=== PATIENT | female | born 1985 | race Caucasian/White ===

== ENCOUNTER 2016-06-25 08:23 | Inpatient (IN) | payer MEDICAID ==
[2016-06-25] MEDS ORDERED: Sodium Chloride 0.9% 1,000 ML IV ONE (08:25)
[2016-06-25] MEDS ORDERED: Albuterol-Ipratrop 3 mg / 0.5 (3 ml) UD INH STA ×2 (08:25)
[2016-06-25] MEDS ORDERED: Albuterol-Ipratrop 3 mg / 0.5 (3 ml) UD ONE (08:51)
--- NOTE | 2016-06-25 08:52 | C.PDOC ---
History Of Present Illness 30 y/o female, whose PMHx includes asthma, presents to the ED for complaints of shortness of breath. Patient is , 23 weeks . at bedside states that the patient had an asthma attack. EMS arrived on the scene where patient was reportedly found hypoxic. Intubation prepared, patient given Nebulizers, Solu-Medrol, Epinephrine, and Magnesium with improvement. Intubation no longer required due to clinical improvement. Patient admits to mild headache but denies any fever, chest pain, or other complaints. Time Seen by Provider: 06/25/16 08:23 Chief Complaint (Nursing): Respiratory Distress History Per: Patient, EMS, Family () History/Exam Limitations: no limitations Onset/Duration Of Symptoms: Hrs, Gradual, Persistent Current Symptoms Are (Timing): Still Present Current Respiratory Medications: See Home Med List Recent travel outside of the [place]: No Past Medical History Reviewed: Historical Data, Nursing Documentation, Vital Signs Vital Signs: Last Vital Signs Temp Pulse 107 H 06/25/16 12:23 Resp 19 06/25/16 12:23 BP 117/63 06/25/16 12:23 Pulse Ox 97 06/25/16 12:39 - Medical History PMH: Asthma Surgical History: - [facility] Procedures TETANUS TOXOID ADMINIST (12/24/14) Family History: States: Unknown Family Hx - Social History Hx Tobacco Use: Yes Hx Alcohol Use: No Hx Substance Use: No - Immunization History Hx Tetanus Toxoid Vaccination: No Hx Influenza Vaccination: No Hx Pneumococcal Vaccination: No Review Of Systems Except As Marked, All Systems Reviewed And Found Negative. Constitutional: Negative for: Fever Cardiovascular: Negative for: Chest Pain Respiratory: Positive for: Shortness of Breath Neurological: Positive for: Headache (mild) Physical Exam - Physical Exam Appears: Non-toxic, Other (in moderate respiratory distress) Skin: Warm, Dry, No Rash Head: Atraumatic, Normacephalic Eye(s): bilateral: Normal Inspection, PERRL, EOMI Neck: Normal ROM, Supple Chest: Symmetrical Cardiovascular: Rhythm Regular Respiratory: Wheezing (diffuse), Other (tachypnic; increased work of breathing; speaking in 5-7 word sentences) Gastrointestinal/Abdominal: Soft, No Tenderness, No Guarding, No Rebound, Other (gravid) Back: Normal Inspection, No CVA Tenderness Extremity: Normal ROM, No Swelling Neurological/Psych: Oriented x3, Normal Speech, Normal Cognition ED Course And Treatment - Laboratory Results Result Diagrams: 06/25/16 08:43 06/25/16 08:43 O2 Sat by Pulse Oximetry: 97 (ra) Pulse Ox Interpretation: Normal Critical Care Time - Critical Care Note Total Time (in mins): 45 Documented critical care: time excludes all time spent performing seperately billable procedures. Medical Decision Making Medical Decision Making: Recommended that patient receive Chest X-Ray. Patient and decline. 1017: case discussed with dr fairbanks, pts obgyn. will eval. ob us ordered. case discussed with dr casarez, pending icu eval. dr tobias accepts. 1230: pt tolerating high flow. status improving. not icu canddiate. dr tobias accepts Disposition - Disposition Disposition: HOSPITALIZED Disposition Time: 12:38 Condition: FAIR - Clinical Impression Clinical Impression: Asthma with status asthmaticus - Scribe Statement The provider has reviewed the documentation as recorded by the Scribe (Zenaida Walton) Provider Attestation: All medical record entries made by the Scribe were at my direction and personally dictated by me. I have reviewed the chart and agree that the record accurately reflects my personal performance of the history, physical exam, medical decision making, and the department course for this patient. I have also personally directed, reviewed, and agree with the discharge instructions and disposition. Decision To Admit - Pt Status Changed To: Hospital Disposition Of: Inpatient - Admit Certification Admit to Inpatient:: After my assessment, the patient will require hospitalization for at least two midnights. This is because of the severity of symptoms shown, intensity of services needed, and/or the medical risk in this patient being treated as an outpatient. - InPatient: Physician Admission Certification: I certify that this patient requires 2 or more midnights of care for the following reason:: status asthmaticus. - . Bed Request Type: Telemetry Admitting Physician: Marcelo Jalloh Patient Diagnosis: Asthma with status asthmaticus
[2016-06-25 08:55] LABS: BASO % 0.2 % (0.0-2.0); EOS # 0.5 K/uL (0.0-0.7); EOS % 3.8 % (0.0-4.0); HEMATOCRIT 35.9 % (34.0-47.0); LYMPH # 4.7 K/uL (1.0-4.3); LYMPH % 36.4 % (20.0-40.0); MEAN CORPUSCULAR HEMOGLOBIN 31.7 pg (27.0-31.0); MEAN CORPUSCULAR HGB CONC 33.4 g/dL (33.0-37.0); MEAN PLATELET VOLUME 8.6 fL (7.2-11.7); MONO # 0.7 K/uL (0.0-0.8); MONO % 5.4 % (0.0-10.0); RED CELL DISTRIBUTION WIDTH 13.2 % (11.5-14.5)
[2016-06-25 09:04] LABS: CHLORIDE 102 mmol/L (98-107); SODIUM 135 mmol/L (132-148)
[2016-06-25 09:06] LABS: GFR AFRICAN-AMERICAN > 60
[2016-06-25 09:06] LABS: ABG ALLEN TEST PO; DRAW SITE RRA
[2016-06-25 09:07] LABS: ALB/GLOB RATIO 1.1 (1.0-2.1); ALKALINE PHOSPHATASE 50 U/L (38-126); ALT/SGPT 20 U/L (9-52); AST/SGOT 31 U/L (14-36); BILIRUBIN,TOTAL 0.2 mg/dL (0.2-1.3); BLOOD UREA NITROGEN 10 mg/dL (7-17); CALCIUM 8.1 mg/dl (8.6-10.4); CARBON DIOXIDE 20 mmol/L (22-30); GLUCOSE,RANDOM 177 mg/dL (65-105); TOTAL PROTEIN 6.7 g/dL (6.3-8.3)
[2016-06-25] MEDS ORDERED: Potassium Chloride 20 mEq ER Tab PO STA (09:08)
[2016-06-25] MEDS ORDERED: Potassium Chloride 20 mEq ER Tab PO ONE (09:14)
--- NOTE | 2016-06-25 11:27 | US ---
Indication: , well-being Comparison: 1st trimester ultrasound performed 03/07/16 Technique: Real-time ultrasound was performed through the pelvis. Findings: There is a single living fetus in variable presentation. Anterior placenta. The placenta is not previa. The ovaries are not well visualized. There are no adnexal masses or cysts evident. Cervix length measures approximately 4.4 cm. Measurements and calculations: Fetus has a composite sonographic age of 23 weeks 4 days. This calculation is based on the biparietal diameter, head circumference, abdominal circumference, and femur length. Estimated heart rate 137.2 beats per min. Estimated weight 589.9 g +/-88.5 g Impression: Single living fetus with a composite sonographic age of 23 weeks 4 days. Estimated heart rate 137.2 beats per min. Please note that this study was performed for the emergent evaluation of well-being, and the whole anatomic survey of the fetus was not performed. This should be performed on an outpatient elective basis as clinically warranted.
[2016-06-25 11:31] LABS: RBC URINE 1 /hpf (0-3); URINE BILIRUBIN NEGATIVE (NEGATIVE); URINE BLOOD 2+ (NEGATIVE); URINE COLOR Straw (YELLOW); URINE GLUCOSE (UA) 1+ mg/dL (Normal); URINE KETONE NEGATIVE (NEGATIVE); URINE LEUKOCYTE ESTERASE NEG Leu/uL (Negative); URINE PROTEIN NEGATIVE (NEGATIVE); URINE UROBILINOGEN NORMAL mg/dL (0.2-1.0); WBC URINE 1 /hpf (0-5)
[2016-06-25] MEDS ORDERED: Potassium Chloride 20 mEq 100 ML IVPB ONE ×2 (11:35→11:40)
--- NOTE | 2016-06-25 13:39 | CP.PCM.HP ---
History of Present Illness - History of Present Illness History of Present Illness: CC - "Asthma" HPI - Patient is a 30 y/o F at 23 weeks with PMHx of asthma and preeclampsia, presenting with SOB for 6 hours. Patient states she was getting ready for work at 7AM and experienced SOB when she bent down to tie her shoes. Patient states this usually happens when she bends over and places pressure on abdomen, but is usually relieved when she sits back up. Patient states she "couldn't breathe," with no relief of symptoms after using her ventolin pump and nebulizer. Patient states her took her outside, but she lost consciousness after noticing that her lips turned blue. Patient reports associated symptoms of dizziness (denies room spinning), headache, and non-productive cough which all began around the same time as SOB. Patient also reports mid-sternal chest pain, non-radiating "pressure", which relieved en route to hospital. She was given nebulizers, solu-medrol, epi, and magnesium by EMS and reported improvement in symptoms. Patient denies spotting or bleeding; denies fever, chills, N/V. No history of blood clots, no recent travel or long cars ride. No new food this AM. PMHx - Asthma since 9 (never been intubated; denies any triggers); preeclampsia (both pregnancies) [employer] [place] Hx- 2 miscarriages and 1 , 2 living (1 10 years old and 1 5 year old) Surg - C section x 2 (2010, 2005) D/C 2008, Removal of ovarian cyst and tumor ( 17 years ago) Meds - Ventolin pump (up to 4 times daily) , Nebulizer once at night Allergies - Kiwi, fruit and seasonal allergies Fam Hx - brother Asthma, older son has asthma - no cancer, [place], stroke Social - smokes when not preg 6 cigs a day for 15 days, denies alcohol while preg but socially when not, denies drug use; lives with and kids; works as [employer] PMD - Dr. Elijah Herrmann - does not follow up often OB - Dr. Earnest Lee - was seen in the office yesterday Present on Admission - Present on Admission Any Indicators Present on Admission: No Review of Systems - Constitutional Constitutional: Fatigue, Headache. absent: Chills, Fever, Night Sweats, Weakness - EENT Eyes: absent: Blurred Vision, Change in Vision - Cardiovascular Cardiovascular: Chest Pain, Chest Pain at Rest. absent: Dyspnea on Exertion, Edema, Orthopnea, Palpitations, Pedal Edema Additional comments: chest pain resolved in ED - Respiratory Respiratory: Cough, Dyspnea. absent: Hemoptysis, Dyspnea on Exertion, Pain on Inspiration - Gastrointestinal Gastrointestinal: absent: Abdominal Pain, Diarrhea, Nausea, Vomiting - Genitourinary Genitourinary: absent: Dysuria, Hematuria, Urinary Incontinence, Urinary Frequency, Urinary Urgency - Reproductive: Female Reproductive:Female: absent: Abnormal Vaginal Bleeding, Pelvic Pain Additional comments: 23 weeks ; - Menstruation Menstruation: absent: Abnormal Vaginal Bleeding - Musculoskeletal Musculoskeletal: Back Pain. absent: Muscle Weakness, Numbness, Tingling - Neurological Neurological: Dizziness, Headaches. absent: Confusion, Numbness, Tingling - Endocrine Endocrine: Fatigue Past Patient History - Infectious Disease Hx of Infectious Diseases: None - Past Social History Smoking Status: Former Smoker - PULMONARY Hx Asthma: Yes - PSYCHIATRIC Hx Substance Use: No - SURGICAL HISTORY Hx Section: Yes Other/Comment: "2 c section, 1 D&C, 1 , 1 cysct and 2 tumors removal in ovaries" - ANESTHESIA Hx Anesthesia: Yes Hx Anesthesia Reactions: No Hx Malignant Hyperthermia: No Meds Allergies/Adverse Reactions: Allergies Allergy/AdvReac Type Severity Reaction Status Date / Time No Known Allergies Allergy Verified 06/25/16 08:36 Physical Exam - Constitutional Appears: Non-toxic, In Acute Distress - Head Exam Head Exam: ATRAUMATIC, NORMAL INSPECTION, NORMOCEPHALIC - Eye Exam Eye Exam: EOMI, PERRL Pupil Exam: NORMAL ACCOMODATION - ENT Exam ENT Exam: Mucous Membranes Moist - Neck Exam Neck exam: Positive for: Normal Inspection - Respiratory Exam Respiratory Exam: Wheezes, Respiratory Distress. absent: Accessory Muscle Use, Chest Wall Tenderness, NORMAL BREATHING PATTERN - Cardiovascular Exam Cardiovascular Exam: Tachycardia, REGULAR RHYTHM, +S1, +S2. absent: Diastolic murmur, Systolic Murmur - GI/Abdominal Exam GI & Abdominal Exam: Distended, Normal Bowel Sounds, Soft. absent: Firm, Guarding, Tenderness Additional comments: distended appropriate - is + movements - Extremities Exam Extremities exam: Positive for: normal inspection. Negative for: calf tenderness, pedal edema - Back Exam Back exam: absent: CVA tenderness (L), CVA tenderness (R), NORMAL INSPECTION, paraspinal tenderness - Neurological Exam Neurological exam: Alert, CN II-XII Intact, Oriented x3, Reflexes Normal - Psychiatric Exam Psychiatric exam: Normal Affect, Normal Mood - Skin Skin Exam: Dry, Intact, Normal Color, Warm Results - Vital Signs Recent Vital Signs: Last Vital Signs Temp Pulse 107 H 06/25/16 12:23 Resp 19 06/25/16 12:23 BP 117/63 06/25/16 12:23 Pulse Ox 97 06/25/16 12:39 - Labs Result Diagrams: 06/25/16 08:43 06/25/16 08:43 Assessment & Plan - Assessment and Plan (Free Text) Assessment: Asthma Exacerbation Patient saturating high 90s on NC, RR in low 20s, +Wheezing Tachycardic (120s) - will monitor Albuterol INH RQ4 [facility] Pulmicort 0.25 INH Q12 [facility] High flow O2 via NC ABG - normal lactate, not retaining C02, ph wnl Monitor vitals Q2 Admit to telemetry Will discuss with her OB, Dr Lee, about Steroid use in - called placed, waiting to hear back Chest X ray - patient refusing until she discusses with OB Venous dopplers LE b/l to rule out DVT Troponin negative, will check one more with EKG f/u UDS UA wnl f/u am labs U/S done in ED 23 week 4 days heart rat 137.2 OBGYN consulted, help appreciated, Dr. Lee - appreciate recs Saw him in office yesterday Hyperglycemia Blood sugar 177 Monitor with accuchecks Consistent Carb diet Prophylaxis GI - not indicated DVT - SCDS - will obtain dopplers first Consistent Carb diet
[2016-06-25 16:45] VITALS: RESP 20
[2016-06-25] MEDS: Albuterol 0.083% Inhal Sol (2.5 mg/3 mL) UD INH SCH ×3 (17:16→23:40)
[2016-06-25] MEDS: Budesonide 0.25 mg/2 ml Inhal Susp UD INH SCH ×2 (17:16→19:41)
[2016-06-26] MEDS: Albuterol 0.083% Inhal Sol (2.5 mg/3 mL) UD INH SCH ×4 (03:09→16:15)
[2016-06-26 06:11] LABS: BASO % 0.1 % (0.0-2.0); HEMATOCRIT 33.5 % (34.0-47.0); LYMPH # 1.1 K/uL (1.0-4.3); LYMPH % 4.9 % (20.0-40.0); MEAN CORPUSCULAR HEMOGLOBIN 31.3 pg (27.0-31.0); MEAN CORPUSCULAR HGB CONC 32.9 g/dL (33.0-37.0); MEAN PLATELET VOLUME 8.8 fL (7.2-11.7); MONO # 0.7 K/uL (0.0-0.8); MONO % 2.9 % (0.0-10.0); PLATELET COUNT 216 K/uL (130-400); RED CELL DISTRIBUTION WIDTH 13.2 % (11.5-14.5); WHITE BLOOD COUNT 23.3 K/uL (4.8-10.8)
[2016-06-26 06:28] LABS: CHLORIDE 105 mmol/L (98-107); POTASSIUM 4.2 mmol/L (3.6-5.2); SODIUM 134 mmol/L (132-148)
[2016-06-26 06:30] LABS: BILIRUBIN,TOTAL 0.5 mg/dL (0.2-1.3); GFR AFRICAN-AMERICAN > 60
[2016-06-26 06:31] LABS: ALB/GLOB RATIO 1.1 (1.0-2.1); ALKALINE PHOSPHATASE 57 U/L (38-126); ALT/SGPT 23 U/L (9-52); AST/SGOT 32 U/L (14-36); BLOOD UREA NITROGEN 8 mg/dL (7-17); CARBON DIOXIDE 19 mmol/L (22-30); GLUCOSE,RANDOM 122 mg/dL (65-105); PHOSPHOROUS 3.3 mg/dL (2.5-4.5); TOTAL PROTEIN 6.1 g/dL (6.3-8.3)
[2016-06-26 06:32] LABS: CALCIUM 8.4 mg/dl (8.6-10.4); MAGNESIUM 1.6 mg/dL (1.6-2.3)
[2016-06-26] MEDS: Budesonide 0.25 mg/2 ml Inhal Susp UD INH SCH (07:45)
--- NOTE | 2016-06-26 08:31 | VASCLAB ---
PROCEDURE: Lower Extremity Venous Duplex Exam. HISTORY: Leg pain, rule out dvt PRIORS: None. TECHNIQUE: Bilateral common femoral, femoral, popliteal and posterior tibial, peroneal and great saphenous veins were evaluated. Flow was assessed with color Doppler, compressibility, assessment of phasic flow and augmentation response. Report prepared by David Blake, AARON, RVT FINDINGS: RIGHT: 1. Common Femoral Vein: 1.1. Compressibility - Fully compressible: Thrombus - None : Flow - Phasic: Augmentation -Normal: Reflux - None. 2. Femoral Vein: 2.1. Compressibility - Fully compressible: Thrombus - None : Flow - Phasic: Augmentation -Normal: Reflux - None. 3. Popliteal Vein: 3.1. Compressibility - Fully compressible: Thrombus - None : Flow - Phasic: Augmentation -Normal: Reflux - None. 4. Posterior Tibial Vein: 4.1. Compressibility - Fully compressible: Thrombus - None: Flow - Phasic: Augmentation -Normal: Reflux - None. 5. Peroneal Vein: 5.1. Compressibility - Fully compressible: Thrombus - None: Flow - Phasic: Augmentation -Normal: Reflux - None. 6. Great Saphenous Vein: 6.1. Compressibility - Fully compressible: Thrombus - None: Flow - Phasic: Augmentation - Normal: Reflux - None. LEFT: 1. Common Femoral Vein: 1.1. Compressibility - Fully compressible: Thrombus - None: Flow - Phasic: Augmentation -Normal: Reflux - None. 2. Femoral Vein: 2.1. Compressibility - Fully compressible: Thrombus - None: Flow - Phasic: Augmentation -Normal: Reflux - None. 3. Popliteal Vein: 3.1. Compressibility - Fully compressible: Thrombus - None : Flow - Phasic: Augmentation -Normal: Reflux - None. 4. Posterior Tibial Vein: 4.1. Compressibility - Fully compressible: Thrombus - None: Flow - Phasic: Augmentation -Normal: Reflux - None. 5. Peroneal Vein: 5.1. Compressibility - Fully compressible: Thrombus - None: Flow - Phasic: Augmentation -Normal: Reflux - None. 6. Great Saphenous Vein: 6.1. Compressibility - Fully compressible: Thrombus - None: Flow - Phasic: Augmentation - Normal: Reflux - None. OTHER FINDINGS: Right: None significant. Left: None significant. IMPRESSION: Right: No evidence of deep or superficial vein thrombosis of the right lower extremity. Normal valve function noted of the right side. Left: No evidence of deep or superficial vein thrombosis of the left lower extremity. Normal valve function noted of the left side.
[2016-06-26 08:41] LABS: LARGE PLATELETS PRESENT; NEUTROPHIL 90 % (50-75); TOTAL CELLS COUNTED 100
--- NOTE | 2016-06-26 10:43 | CP.PCM.CON ---
History of Present Illness - History of Present Illness History of Present Illness: 30 year old P3 at 24 weeks Gestation admitted with Status Asthmaticus. Review of Systems - Respiratory Respiratory: As Per HPI - Reproductive: Female Reproductive:Female: As Per HPI Past Patient History - Infectious Disease Hx of Infectious Diseases: None - Past Medical History & Family History Past Medical History?: Yes - Past Social History Smoking Status: Never Smoked - PULMONARY Hx Asthma: Yes - MUSCULOSKELETAL/RHEUMATOLOGICAL Hx Falls: No - PSYCHIATRIC Hx Psychophysiologic Disorder: No Hx Substance Use: No - SURGICAL HISTORY Hx Surgeries: Yes Hx Section: Yes Other/Comment: "2 c section, 1 D&C, 1 , 1 cysct and 2 tumors removal in ovaries" - ANESTHESIA Hx Anesthesia: Yes Hx Anesthesia Reactions: No Hx Malignant Hyperthermia: No Has any member of the family had a problem w/ anesthesia?: No Meds Allergies/Adverse Reactions: Allergies Allergy/AdvReac Type Severity Reaction Status Date / Time No Known Allergies Allergy Verified 06/25/16 08:36 - Medications Medications: Current Medications Acetaminophen (Tylenol 325mg Tab) 650 mg PO Q6 PRN PRN Reason: Pain, moderate (4-7) Last Admin: 06/25/16 19:09 Dose: 650 mg Albuterol Sulfate (Albuterol 0.083% Inhal Patsy (2.5 Mg/3 Ml) Ud) 2.5 mg INH Q4 [facility] Last Admin: 06/26/16 07:45 Dose: 2.5 mg Budesonide (Pulmicort Respules) 0.25 mg INH RQ12 [facility] Last Admin: 06/26/16 07:45 Dose: 0.25 mg Prednisone (Prednisone Tab) 40 mg PO DAILY [facility] Physical Exam - Constitutional Appears: Well - Respiratory Exam Respiratory Exam: Wheezes, NORMAL BREATHING PATTERN Results - Vital Signs Recent Vital Signs: Last Vital Signs Temp 98.4 F 06/26/16 07:00 Pulse 98 H 06/26/16 07:35 Resp 20 06/26/16 07:00 BP 114/67 06/26/16 07:00 Pulse Ox 97 06/26/16 07:00 - Labs Result Diagrams: 06/26/16 06:02 06/26/16 06:02 Labs: Laboratory Results - last 24 hr 06/25/16 06/25/16 06/26/16 19:33 22:22 06:02 WBC 23.3 H D RBC 3.53 L Hgb 11.0 Hct 33.5 L MCV 95.0 MCH 31.3 H MCHC 32.9 L RDW 13.2 Plt Count 216 MPV 8.8 Neut % (Auto) 92.1 H Lymph % (Auto) 4.9 L Rhea % (Auto) 2.9 Eos % (Auto) 0.0 Baso % (Auto) 0.1 Neut # 21.5 H Lymph # 1.1 Rhea # 0.7 Eos # 0.0 Baso # 0.0 Neutrophils % (Manual) 90 H Band Neutrophils % 2 Lymphocytes % (Manual) 5 L Monocytes % (Manual) 3 Platelet Estimate Normal Large Platelets Present RBC Morphology Normal Sodium 134 Potassium 4.2 Chloride 105 Carbon Dioxide 19 L Anion Gap 14 BUN 8 Creatinine 0.4 L Est GFR ( Amer) > 60 Est GFR (Non-Af Amer) > 60 Random Glucose 122 H Calcium 8.4 L Phosphorus 3.3 Magnesium 1.6 Total Bilirubin 0.5 AST 32 ALT 23 Alkaline Phosphatase 57 Troponin I < 0.0120 Total Protein 6.1 L Albumin 3.2 L Globulin 2.9 Albumin/Globulin Ratio 1.1 Urine Opiates Screen Negative Urine Methadone Screen Negative Ur Barbiturates Screen Negative Ur Phencyclidine Scrn Negative Ur Amphetamines Screen Negative U Benzodiazepines Scrn Negative U Oth Cocaine Metabols Negative U Cannabinoids Screen Negative - Impressions Impression: 24 week Gestation with Asthma. Leukocytosis from steroids. Assessment & Plan - Assessment and Plan (Free Text) Assessment: 24 weeks G[place] with Asthma Exacerbation. Plan: Management per Medical team. - Date & Time Date: 06/26/16 Time: 10:47
--- NOTE | 2016-06-26 13:13 | RAD ---
PROCEDURE: CHEST RADIOGRAPH, 1 VIEW HISTORY: SOB COMPARISON: 03/03/2013 FINDINGS: LUNGS: Nodular opacity in the medial right lower lung. PLEURA: No pneumothorax or pleural fluid seen. CARDIOVASCULAR: Normal. OSSEOUS STRUCTURES: No significant abnormalities. VISUALIZED UPPER ABDOMEN: Normal. OTHER FINDINGS: None. IMPRESSION: Nodular opacity in the medial right lower lung. This could be an infectious focus. PA lateral chest radiograph recommended.
--- NOTE | 2016-06-26 15:53 | CP.PCM.PN ---
<PratikLisa - Last Filed: 06/26/16 16:01> Subjective - Date & Time of Evaluation Date of Evaluation: 06/26/16 Time of Evaluation: 07:40 - Subjective Subjective: PGY1 note for Dr. Jalloh: Patient seen and examined at bedside. She states she is still slighly short of breath. She said that she was short of breath while geting up and walking to the bathrooom. Patient denied all other complaints such as headache, visual changes, weakness/numbness, fever/chills, SOB, chest pain, palpitation, abd pain , N/V, constipation, diarrhea, edema, urinary complaints. She is tolerating her diet and feels the baby moving. Objective - Vital Signs/Intake and Output Vital Signs (last 24 hours): Temp Pulse Resp BP Pulse Ox 98.2 F 79 20 112/63 98 06/26/16 11:00 06/26/16 11:00 06/26/16 11:00 06/26/16 11:00 06/26/16 11:00 - Medications Medications: Current Medications Acetaminophen (Tylenol 325mg Tab) 650 mg PO Q6 PRN PRN Reason: Pain, moderate (4-7) Last Admin: 06/25/16 19:09 Dose: 650 mg Albuterol Sulfate (Albuterol 0.083% Inhal Patsy (2.5 Mg/3 Ml) Ud) 2.5 mg INH Q4 [facility] Last Admin: 06/26/16 11:35 Dose: 2.5 mg Budesonide (Pulmicort Respules) 0.25 mg INH RQ12 [facility] Last Admin: 06/26/16 07:45 Dose: 0.25 mg Prednisone (Prednisone Tab) 40 mg PO Q24H [facility] Last Admin: 06/26/16 11:22 Dose: 40 mg - Labs Labs: 06/26/16 06:02 06/26/16 06:02 PT 10.7 SECONDS (9.7-12.2) 06/25/16 08:43 INR 1.0 06/25/16 08:43 APTT 24 SECONDS (21-34) 06/25/16 08:43 - Constitutional Appears: Non-toxic, No Acute Distress - Head Exam Head Exam: ATRAUMATIC, NORMAL INSPECTION - Eye Exam Eye Exam: EOMI Pupil Exam: NORMAL ACCOMODATION - Respiratory Exam Respiratory Exam: Decreased Breath Sounds, NORMAL BREATHING PATTERN. absent: Accessory Muscle Use, Wheezes, Respiratory Distress - Cardiovascular Exam Cardiovascular Exam: REGULAR RHYTHM, +S1, +S2 - GI/Abdominal Exam GI & Abdominal Exam: Distended, Soft. absent: Firm, Guarding, Tenderness, Normal Bowel Sounds Additional comments: - Extremities Exam Extremities Exam: Full ROM, Normal Inspection, Pedal Edema. absent: Calf Tenderness - Back Exam Back Exam: NORMAL INSPECTION. absent: CVA tenderness (L), CVA tenderness (R), paraspinal tenderness - Neurological Exam Neurological Exam: Alert, Awake, CN II-XII Intact, Oriented x3 Neuro motor strength exam: Left Upper Extremity: 5, Right Upper Extremity: 5, Left Lower Extremity: 5, Right Lower Extremity: 5 - Psychiatric Exam Psychiatric exam: Normal Affect, Normal Mood - Skin Skin Exam: Dry, Intact, Normal Color, Warm Assessment and Plan - Assessment and Plan (Free Text) Assessment: Asthma Exacerbation Wheezing improved but pt still complains of SOB Chest X ray - nodular opacity in the medial right lower Will consult pulm for possible pneumonia Tachycardia improving Albuterol INH RQ4 [facility] Pulmicort 0.25 INH Q12 [facility] NC 2 L prn ABG - normal lactate, not retaining C02, ph wnl Monitor vitals Q2 Admit to telemetry Will discuss with her OB, Dr Lee Venous dopplers LE b/l - negative Troponin negative x 2 UDS negative UA wnl f/u am labs U/S done in ED 23 week 4 days heart rat 137.2 OBGYN consulted, help appreciated, Dr. Lee - appreciate recs Saw him in office yesterday Hyperglycemia Blood sugar 177 on admission, 122 today Monitor with accuchecks Consistent Carb diet Prophylaxis GI - not indicated DVT - SCDS Consistent Carb diet <Marcelo Jalloh - Last Filed: 06/27/16 10:21> Objective - Vital Signs/Intake and Output Vital Signs (last 24 hours): Temp Pulse Resp BP Pulse Ox 97.9 F 79 20 92/60 L 96 06/27/16 07:57 06/27/16 07:57 06/27/16 07:57 06/27/16 07:57 06/27/16 07:57 - Medications Medications: Current Medications Acetaminophen (Tylenol 325mg Tab) 650 mg PO Q6 PRN PRN Reason: Pain, moderate (4-7) Last Admin: 06/25/16 19:09 Dose: 650 mg Albuterol Sulfate (Albuterol 0.083% Inhal Patsy (2.5 Mg/3 Ml) Ud) 2.5 mg INH Q4 [facility] Last Admin: 06/27/16 07:10 Dose: 2.5 mg Budesonide (Pulmicort Respules) 0.25 mg INH RQ12 [facility] Last Admin: 06/27/16 07:10 Dose: 0.25 mg Magnesium Sulfate/Dextrose (Magnesium Sulfate 1 Gm/100 Ml D5w) 100 mls @ 100 mls/hr IVPB ONCE ONE Stop: 06/27/16 10:45 Prednisone (Prednisone Tab) 40 mg PO Q24H [facility] Last Admin: 06/26/16 11:22 Dose: 40 mg - Labs Labs: 06/27/16 05:45 06/27/16 05:45 PT 10.7 SECONDS (9.7-12.2) 06/25/16 08:43 INR 1.0 06/25/16 08:43 APTT 24 SECONDS (21-34) 06/25/16 08:43 Attending/Attestation - Attestation I have personally seen and examined this patient.: Yes I have fully participated in the care of the patient.: Yes I have reviewed all pertinent clinical information, including history, physical exam and plan: Yes Notes (Text): Patient with asthma since childhood, now at 16 weeks, presented with severe shortness of breath, admitted for asthma exacerbation; Breathing reportedly improved but still short of breath on minimal exertion; lungs clear and no wheezing on exam, good air movement; venous LE duplex negative; Patient finally agreed to CXR, clear except for noted nodular opacity in RML; will get pulm consult; OB consult appreciated, recommending medical management; -continue PO prednisone (decreased to 40 mg daily from bid) -continue budesonide bid
[2016-06-27] MEDS: Albuterol 0.083% Inhal Sol (2.5 mg/3 mL) UD INH SCH ×6 (01:00→19:25)
[2016-06-27 06:35] LABS: BASO % 0.1 % (0.0-2.0); EOS # 0.1 K/uL (0.0-0.7); EOS % 0.3 % (0.0-4.0); HEMATOCRIT 33.1 % (34.0-47.0); LYMPH # 2.9 K/uL (1.0-4.3); LYMPH % 19.6 % (20.0-40.0); MEAN CELL VOLUME 95.5 fL (81.0-99.0); MEAN CORPUSCULAR HEMOGLOBIN 31.5 pg (27.0-31.0); MEAN PLATELET VOLUME 8.9 fL (7.2-11.7); MONO # 0.8 K/uL (0.0-0.8); MONO % 5.3 % (0.0-10.0); RED CELL DISTRIBUTION WIDTH 13.2 % (11.5-14.5)
[2016-06-27 06:43] LABS: CHLORIDE 108 mmol/L (98-107)
[2016-06-27 06:44] LABS: POTASSIUM 3.8 mmol/L (3.6-5.2); SODIUM 137 mmol/L (132-148)
[2016-06-27 06:46] LABS: ALB/GLOB RATIO 0.9 (1.0-2.1); AST/SGOT 24 U/L (14-36); BILIRUBIN,TOTAL 0.2 mg/dL (0.2-1.3); CARBON DIOXIDE 19 mmol/L (22-30); GFR AFRICAN-AMERICAN > 60; TOTAL PROTEIN 6.1 g/dL (6.3-8.3)
[2016-06-27 06:47] LABS: ALKALINE PHOSPHATASE 40 U/L (38-126); ALT/SGPT 41 U/L (9-52); BLOOD UREA NITROGEN 13 mg/dL (7-17); CALCIUM 8.1 mg/dl (8.6-10.4); GLUCOSE,RANDOM 84 mg/dL (65-105); PHOSPHOROUS 3.5 mg/dL (2.5-4.5)
[2016-06-27 06:48] LABS: MAGNESIUM 1.5 mg/dL (1.6-2.3)
[2016-06-27] MEDS: Budesonide 0.25 mg/2 ml Inhal Susp UD INH SCH ×2 (07:10→19:25)
--- NOTE | 2016-06-27 10:50 | CP.PCM.PN ---
Subjective - Date & Time of Evaluation Date of Evaluation: 06/27/16 Time of Evaluation: 10:48 - Subjective Subjective: Complains of shortness of breath on exertion. States good movement. Objective - Vital Signs/Intake and Output Vital Signs (last 24 hours): Temp Pulse Resp BP Pulse Ox 97.9 F 79 20 92/60 L 96 06/27/16 07:57 06/27/16 07:57 06/27/16 07:57 06/27/16 07:57 06/27/16 07:57 - Medications Medications: Current Medications Acetaminophen (Tylenol 325mg Tab) 650 mg PO Q6 PRN PRN Reason: Pain, moderate (4-7) Last Admin: 06/25/16 19:09 Dose: 650 mg Albuterol Sulfate (Albuterol 0.083% Inhal Patsy (2.5 Mg/3 Ml) Ud) 2.5 mg INH Q4 [facility] Last Admin: 06/27/16 07:10 Dose: 2.5 mg Budesonide (Pulmicort Respules) 0.25 mg INH RQ12 [facility] Last Admin: 06/27/16 07:10 Dose: 0.25 mg Heparin Sodium (Porcine) (Heparin) 5,000 units SC Q8 [facility] Prednisone (Prednisone Tab) 40 mg PO Q24H [facility] Last Admin: 06/26/16 11:22 Dose: 40 mg - Labs Labs: 06/27/16 05:45 06/27/16 05:45 PT 10.7 SECONDS (9.7-12.2) 06/25/16 08:43 INR 1.0 06/25/16 08:43 APTT 24 SECONDS (21-34) 06/25/16 08:43 - Constitutional Appears: Well - Respiratory Exam Respiratory Exam: Clear to Ausculation Bilateral, NORMAL BREATHING PATTERN - Cardiovascular Exam Cardiovascular Exam: REGULAR RHYTHM - GI/Abdominal Exam GI & Abdominal Exam: Normal Bowel Sounds Additional comments: Good movement. FHT 146bpm Assessment and Plan - Assessment and Plan (Free Text) Assessment: Asthma Exacerbation at 24 weeks Gestation Plan: Management per Medicine Team. Can stop fingersticks for glucose.
--- NOTE | 2016-06-27 21:37 | CP.PCM.CON ---
History of Present Illness - History of Present Illness History of Present Illness: Reason for consultation: Shortness of breath Patient is a 30 y/o Female 23 weeks with PMHx of asthma and preeclampsia, presented with SOB . Patient states she was getting ready for work and experienced SOB when she bent down to tie her shoes. Patient states this usually happens when she bends over and places pressure on abdomen, but is usually relieved when she sits back up. Patient states she "couldn't breathe," with no relief of symptoms after using her ventolin pump and nebulizer. She was given nebulizers, solu-medrol, epi, and magnesium by EMS and reported improvement in symptoms. Patient denies spotting or bleeding; denies fever, chills, N/V. No history of blood clots, no recent travel or long cars ride. No new food this AM. 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 miscarriages and 1 , 2 living (1 10 years old and 1 5 year old) Surg - C section x 2 (2010, 2005) D/C 2008, Removal of ovarian cyst and tumor ( 17 years ago) Meds - Ventolin pump (up to 4 times daily) , Nebulizer once at night Allergies - Kiwi, fruit and seasonal allergies Fam Hx - brother Asthma, older son has asthma - no cancer, [place], stroke Social - smokes when not preg 6 cigs a day for 15 days, denies alcohol while preg but socially when not, denies drug use; lives with and kids; 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 Review of Systems - Review of Systems All systems: reviewed and no additional remarkable complaints except (Shortness of breath) Past Patient History - Infectious Disease Hx of Infectious Diseases: None - Past Medical History & Family History Past Medical History?: Yes - Past Social History Smoking Status: Light Smoker < 10 Cigarettes Daily - PULMONARY Hx Asthma: Yes - MUSCULOSKELETAL/RHEUMATOLOGICAL Hx Falls: No - PSYCHIATRIC Hx Psychophysiologic Disorder: No Hx Substance Use: No - SURGICAL HISTORY Hx Surgeries: Yes Hx Section: Yes Other/Comment: "2 c section, 1 D&C, 1 , 1 cysct and 2 tumors removal in ovaries" - ANESTHESIA Hx Anesthesia: Yes Hx Anesthesia Reactions: No Hx Malignant Hyperthermia: No Has any member of the family had a problem w/ anesthesia?: No Meds Allergies/Adverse Reactions: Allergies Allergy/AdvReac Type Severity Reaction Status Date / Time No Known Allergies Allergy Verified 06/25/16 08:36 - Medications Medications: Current Medications Acetaminophen (Tylenol 325mg Tab) 650 mg PO Q6 PRN PRN Reason: Pain, moderate (4-7) Last Admin: 06/25/16 19:09 Dose: 650 mg Albuterol Sulfate (Albuterol 0.083% Inhal Patsy (2.5 Mg/3 Ml) Ud) 2.5 mg INH Q4 [facility] Last Admin: 06/27/16 19:25 Dose: 2.5 mg Budesonide (Pulmicort Respules) 0.25 mg INH RQ12 [facility] Last Admin: 06/27/16 19:25 Dose: 0.25 mg Heparin Sodium (Porcine) (Heparin) 5,000 units SC Q8 [facility] Last Admin: 06/27/16 13:25 Dose: 5,000 units Multivitamins (Hexavitamin) 1 tab PO DAILY [facility] Prednisone (Prednisone Tab) 40 mg PO Q24H [facility] Last Admin: 06/27/16 11:29 Dose: 40 mg Physical Exam - Constitutional Appears: No Acute Distress - Head Exam Head Exam: ATRAUMATIC, NORMOCEPHALIC - Eye Exam Eye Exam: Normal appearance - ENT Exam ENT Exam: Mucous Membranes Moist - Neck Exam Neck exam: Positive for: Normal Inspection - Respiratory Exam Respiratory Exam: Clear to Auscultation Bilateral - Cardiovascular Exam Cardiovascular Exam: REGULAR RHYTHM - GI/Abdominal Exam GI & Abdominal Exam: Normal Bowel Sounds - Extremities Exam Extremities exam: Positive for: normal inspection - Neurological Exam Neurological exam: Alert, Oriented x3 Results - Vital Signs Recent Vital Signs: Last Vital Signs Temp 97.2 F L 06/27/16 15:00 Pulse 93 H 06/27/16 16:00 Resp 20 06/27/16 15:00 BP 115/67 06/27/16 15:00 Pulse Ox 97 06/27/16 15:00 - Labs Result Diagrams: 06/27/16 05:45 06/27/16 05:45 Labs: Laboratory Results - last 24 hr 06/27/16 06/27/16 06/27/16 05:45 06:30 11:38 WBC 15.0 H RBC 3.46 L Hgb 10.9 L Hct 33.1 L MCV 95.5 MCH 31.5 H MCHC 33.0 RDW 13.2 Plt Count 198 MPV 8.9 Neut % (Auto) 74.7 Lymph % (Auto) 19.6 L [place] % (Auto) 5.3 Eos % (Auto) 0.3 Baso % (Auto) 0.1 Neut # 11.2 H Lymph # 2.9 [place] # 0.8 Eos # 0.1 Baso # 0.0 Sodium 137 Potassium 3.8 Chloride 108 H Carbon Dioxide 19 L Anion Gap 14 BUN 13 Creatinine 0.5 L Est GFR ( Amer) > 60 Est GFR (Non-Af Amer) > 60 POC Glucose (mg/dL) 75 82 Random Glucose 84 Calcium 8.1 L Phosphorus 3.5 Magnesium 1.5 L Total Bilirubin 0.2 AST 24 ALT 41 Alkaline Phosphatase 40 Total Protein 6.1 L Albumin 2.9 L Globulin 3.3 Albumin/Globulin Ratio 0.9 L 06/27/16 16:48 WBC RBC Hgb Hct MCV MCH MCHC RDW Plt Count MPV Neut % (Auto) Lymph % (Auto) [place] % (Auto) Eos % (Auto) Baso % (Auto) Neut # Lymph # [place] # Eos # Baso # Sodium Potassium Chloride Carbon Dioxide Anion Gap BUN Creatinine Est GFR ( Amer) Est GFR (Non-Af Amer) POC Glucose (mg/dL) 120 H Random Glucose Calcium Phosphorus Magnesium Total Bilirubin AST ALT Alkaline Phosphatase Total Protein Albumin Globulin Albumin/Globulin Ratio Assessment & Plan (1) Exacerbation of asthma Status: Acute Comment: Pneumonia unlikely, patient complaining of shortness of breath but denies any productive cough, denies fever or chills. Nebulizer treatment and inhaled steroids. DC prednisone. Monitor WBCs
--- NOTE | 2016-06-27 21:54 | CP.PCM.PN ---
<Iván Stokes - Last Filed: 06/27/16 21:46> Subjective - Date & Time of Evaluation Date of Evaluation: 06/27/16 Time of Evaluation: 09:20 - Subjective Subjective: PGY1 note for Dr. Jalloh: Patient seen and examined at bedside. She states she is still slighly short of breath. Today, she walked with the pulse ox around the hallways with no change in her O2 sat and no shortness of breath, but she did complain of her feet hurting and fatigue. She denied all other complaints such as headache, visual changes, weakness/numbness, fever/chills, SOB, chest pain, palpitation, abd pain , N/V, constipation, diarrhea, edema, urinary complaints. Objective - Vital Signs/Intake and Output Vital Signs (last 24 hours): Temp Pulse Resp BP Pulse Ox 97.2 F L 93 H 20 115/67 97 06/27/16 15:00 06/27/16 16:00 06/27/16 15:00 06/27/16 15:00 06/27/16 15:00 Intake and Output: 06/27/16 06/28/16 18:59 06:59 Intake Total 480 Balance 480 - Medications Medications: Current Medications Acetaminophen (Tylenol 325mg Tab) 650 mg PO Q6 PRN PRN Reason: Pain, moderate (4-7) Last Admin: 06/25/16 19:09 Dose: 650 mg Albuterol Sulfate (Albuterol 0.083% Inhal Patsy (2.5 Mg/3 Ml) Ud) 2.5 mg INH Q4 [facility] Last Admin: 06/27/16 19:25 Dose: 2.5 mg Budesonide (Pulmicort Respules) 0.25 mg INH RQ12 [facility] Last Admin: 06/27/16 19:25 Dose: 0.25 mg Heparin Sodium (Porcine) (Heparin) 5,000 units SC Q8 [facility] Last Admin: 06/27/16 21:44 Dose: 5,000 units Multivitamins (Hexavitamin) 1 tab PO DAILY [facility] - Labs Labs: 06/27/16 05:45 06/27/16 05:45 PT 10.7 SECONDS (9.7-12.2) 06/25/16 08:43 INR 1.0 06/25/16 08:43 APTT 24 SECONDS (21-34) 06/25/16 08:43 - Constitutional Appears: Non-toxic - Head Exam Head Exam: ATRAUMATIC, NORMOCEPHALIC - Eye Exam Eye Exam: EOMI, Normal appearance - ENT Exam ENT Exam: Mucous Membranes Moist - Neck Exam Neck Exam: Full ROM - Respiratory Exam Respiratory Exam: Clear to Ausculation Bilateral, NORMAL BREATHING PATTERN - Cardiovascular Exam Cardiovascular Exam: REGULAR RHYTHM, +S1, +S2 - GI/Abdominal Exam GI & Abdominal Exam: Soft Additional comments: - Extremities Exam Extremities Exam: Full ROM, Pedal Edema. absent: Calf Tenderness - Back Exam Back Exam: NORMAL INSPECTION. absent: CVA tenderness (L), CVA tenderness (R) - Neurological Exam Neurological Exam: Alert, Awake, CN II-XII Intact, Normal Gait, Oriented x3 - Psychiatric Exam Psychiatric exam: Normal Affect, Normal Mood - Skin Skin Exam: Dry, Intact, Normal Color, Warm Assessment and Plan - Assessment and Plan (Free Text) Plan: Asthma Exacerbation Wheezing improved but pt still complains of SOB Chest X ray - nodular opacity in the medial right lower Will consult pulm for possible pneumonia -Pneumonia unlikely, patient complaining of shortness of breath but denies any productive cough, denies fever or chills. Nebulizer treatment and inhaled steroids. DC prednisone. Monitor WBCs Tachycardia improving Albuterol INH RQ4 [facility] Pulmicort 0.25 INH Q12 [facility] NC 2 L prn ABG - normal lactate, not retaining C02, ph wnl Monitor vitals Q2 Admit to telemetry Will discuss with her OB, Dr Lee Venous dopplers LE b/l - negative Troponin negative x 2 UDS negative UA wnl f/u am labs U/S done in ED 23 week 4 days heart rat 137.2 OBGYN consulted, help appreciated, Dr. Lee - appreciate recs Saw him in office yesterday Hyperglycemia Blood sugar 177 on admission, 122 today Monitor with accuchecks Consistent Carb diet Prophylaxis GI - not indicated DVT - SCDS Consistent Carb diet <Marcelo Jalloh - Last Filed: 06/28/16 08:39> Objective - Vital Signs/Intake and Output Vital Signs (last 24 hours): Temp Pulse Resp BP Pulse Ox 98.7 F 86 20 107/57 L 96 06/28/16 00:18 06/28/16 00:49 06/28/16 00:18 06/28/16 00:18 06/28/16 00:18 - Medications Medications: Current Medications Acetaminophen (Tylenol 325mg Tab) 650 mg PO Q6 PRN PRN Reason: Pain, moderate (4-7) Last Admin: 06/25/16 19:09 Dose: 650 mg Albuterol Sulfate (Albuterol 0.083% Inhal Patsy (2.5 Mg/3 Ml) Ud) 2.5 mg INH Q4 [facility] Last Admin: 06/28/16 04:37 Dose: Not Given Budesonide (Pulmicort Respules) 0.25 mg INH RQ12 [facility] Last Admin: 06/27/16 19:25 Dose: 0.25 mg Heparin Sodium (Porcine) (Heparin) 5,000 units SC Q8 [facility] Last Admin: 06/28/16 06:34 Dose: 5,000 units Multivitamins (Hexavitamin) 1 tab PO DAILY [facility] - Labs Labs: 06/28/16 06:00 06/28/16 06:00 PT 10.7 SECONDS (9.7-12.2) 06/25/16 08:43 INR 1.0 06/25/16 08:43 APTT 24 SECONDS (21-34) 06/25/16 08:43 Attending/Attestation - Attestation I have personally seen and examined this patient.: Yes I have fully participated in the care of the patient.: Yes I have reviewed all pertinent clinical information, including history, physical exam and plan: Yes Notes (Text): Patient with asthma, at 16 weeks gestation, admitted for asthma exacerbation; Breathing continues to improved; no hypoxia noted by pulse ox on walking today; good air movement on exam; Pulm consulted today due to finding of nodular opacity of RML on CXR; feel this is not pneumonia; also, discontinued systemic steroids; -continue budesonide inhaler and albuterol nebs Dispo: Likely d/c home tomorrow.
[2016-06-27 22:21] LABS: RBC URINE 4 /hpf (0-3); TRANSITIONAL EPITHIAL < 1 /hpf (0-3); URINE BACTERIA RARE (<OCC); URINE BILIRUBIN NEGATIVE (NEGATIVE); URINE BLOOD 1+ (NEGATIVE); URINE COLOR Yellow (YELLOW); URINE GLUCOSE (UA) NORMAL (Normal); URINE KETONE NEGATIVE (NEGATIVE); URINE LEUKOCYTE ESTERASE NEG Leu/uL (Negative); URINE PROTEIN NEGATIVE (NEGATIVE); URINE UROBILINOGEN NORMAL mg/dL (0.2-1.0); WBC URINE 1 /hpf (0-5)
[2016-06-28] MEDS: Albuterol 0.083% Inhal Sol (2.5 mg/3 mL) UD INH SCH ×4 (00:56→11:20)
[2016-06-28 07:01] LABS: CHLORIDE 103 mmol/L (98-107); POTASSIUM 3.8 mmol/L (3.6-5.2); SODIUM 136 mmol/L (132-148)
[2016-06-28 07:04] LABS: ALKALINE PHOSPHATASE 46 U/L (38-126); ALT/SGPT 34 U/L (9-52); AST/SGOT 29 U/L (14-36); BILIRUBIN,TOTAL 0.2 mg/dL (0.2-1.3); BLOOD UREA NITROGEN 14 mg/dL (7-17); CALCIUM 8.3 mg/dl (8.6-10.4); CARBON DIOXIDE 21 mmol/L (22-30); GFR AFRICAN-AMERICAN > 60; GLUCOSE,RANDOM 83 mg/dL (65-105); PHOSPHOROUS 4.1 mg/dL (2.5-4.5); TOTAL PROTEIN 5.9 g/dL (6.3-8.3)
[2016-06-28 07:05] LABS: MAGNESIUM 1.5 mg/dL (1.6-2.3)
[2016-06-28 07:08] LABS: BASO % 0.1 % (0.0-2.0); EOS # 0.1 K/uL (0.0-0.7); EOS % 0.4 % (0.0-4.0); HEMATOCRIT 33.3 % (34.0-47.0); LYMPH # 3.1 K/uL (1.0-4.3); LYMPH % 20.5 % (20.0-40.0); MEAN CELL VOLUME 94.5 fL (81.0-99.0); MEAN CORPUSCULAR HEMOGLOBIN 31.2 pg (27.0-31.0); MEAN PLATELET VOLUME 9.1 fL (7.2-11.7); MONO % 6.2 % (0.0-10.0); NRBC % 0.1 % (0.0-2.0); RED CELL DISTRIBUTION WIDTH 13.4 % (11.5-14.5); WHITE BLOOD COUNT 15.3 K/uL (4.8-10.8)
[2016-06-28] MEDS: Budesonide 0.25 mg/2 ml Inhal Susp UD INH SCH (07:10)
--- NOTE | 2016-06-28 09:07 | CARD ---
APPROVED REPORT EKG Measurement Heart [id number] CO 126P52 [id number] <Conclusion> Sinus tachycardia Possible Left atrial enlargement Borderline ECG
--- NOTE | 2016-06-28 09:29 | CARD ---
APPROVED REPORT EKG Measurement Heart [id number] CT 116P59 [id number] <Conclusion> Sinus tachycardia Otherwise normal ECG
[2016-06-28] MEDS ORDERED: Multiple Vitamins Tab PO SCH (10:00)
[2016-06-28 17:47] VITALS: BP 105/62; PULSE 88; TEMP 98.1; O2SAT 97
--- NOTE | 2016-06-28 22:03 | CP.PCM.DIS ---
Provider - Provider Date of Admission: 06/25/16 12:40 Attending physician: Marcelo Jalloh MD Time Spent in preparation of Discharge (in minutes): 35 Hospital Course - Lab Results Lab Results: Most Recent Lab Values WBC 15.3 K/uL (4.8-10.8) H 06/28/16 06:00 RBC 3.52 Mil/uL (3.80-5.20) L 06/28/16 06:00 Hgb 11.0 g/dL (11.0-16.0) 06/28/16 06:00 Hct 33.3 % (34.0-47.0) L 06/28/16 06:00 MCV 94.5 fL (81.0-99.0) 06/28/16 06:00 MCH 31.2 pg (27.0-31.0) H 06/28/16 06:00 MCHC 33.0 g/dL (33.0-37.0) 06/28/16 06:00 RDW 13.4 % (11.5-14.5) 06/28/16 06:00 Plt Count 207 K/uL (130-400) 06/28/16 06:00 MPV 9.1 fL (7.2-11.7) 06/28/16 06:00 Neut % (Auto) 72.8 % (50.0-75.0) 06/28/16 06:00 Lymph % (Auto) 20.5 % (20.0-40.0) 06/28/16 06:00 [place] % (Auto) 6.2 % (0.0-10.0) 06/28/16 06:00 Eos % (Auto) 0.4 % (0.0-4.0) 06/28/16 06:00 Baso % (Auto) 0.1 % (0.0-2.0) 06/28/16 06:00 Neut # 11.1 K/uL (1.8-7.0) H 06/28/16 06:00 Lymph # 3.1 K/uL (1.0-4.3) 06/28/16 06:00 [place] # 1.0 K/uL (0.0-0.8) H 06/28/16 06:00 Eos # 0.1 K/uL (0.0-0.7) 06/28/16 06:00 Baso # 0.0 K/uL (0.0-0.2) 06/28/16 06:00 Neutrophils % (Manual) 90 % (50-75) H 06/26/16 06:02 Band Neutrophils % 2 % (0-2) 06/26/16 06:02 Lymphocytes % (Manual) 5 % (20-40) L 06/26/16 06:02 Monocytes % (Manual) 3 % (0-10) 06/26/16 06:02 Platelet Estimate Normal (NORMAL) 06/26/16 06:02 Large Platelets Present 06/26/16 06:02 RBC Morphology Normal 06/26/16 06:02 PT 10.7 SECONDS (9.7-12.2) 06/25/16 08:43 INR 1.0 06/25/16 08:43 APTT 24 SECONDS (21-34) 06/25/16 08:43 Puncture Site Rra 06/25/16 09:03 pCO2 30 mm/Hg (35-45) L 06/25/16 09:03 pO2 107 mm/Hg (80-100) H 06/25/16 09:03 HCO3 18.9 mmol/L (21-28) L 06/25/16 09:03 ABG pH 7.35 (7.35-7.45) 06/25/16 09:03 ABG Total CO2 17.5 mmol/L (22-28) L 06/25/16 09:03 ABG O2 Saturation 99.5 % (95-98) H 06/25/16 09:03 ABG Base Excess -7.7 mmol/L (-2.0-3.0) L 06/25/16 09:03 Zackery Test Po 06/25/16 09:03 ABG Potassium 2.9 mmol/L (3.6-5.2) L 06/25/16 09:03 A-a O2 Difference 141.0 mm/Hg 06/25/16 09:03 Respiratory Index 1.3 06/25/16 09:03 Sodium 136.0 mmol/l (132-148) 06/25/16 09:03 Chloride 112.0 mmol/L (98-107) H 06/25/16 09:03 Glucose 175 mg/dl (65-105) H 06/25/16 09:03 Lactate 1.4 mmol/L (0.7-2.1) 06/25/16 09:03 Liter Flow 15.0 06/25/16 09:03 FiO2 40.0 % 06/25/16 09:03 Sodium 136 mmol/L (132-148) 06/28/16 06:00 Potassium 3.8 mmol/L (3.6-5.2) 06/28/16 06:00 Chloride 103 mmol/L (98-107) 06/28/16 06:00 Carbon Dioxide 21 mmol/L (22-30) L 06/28/16 06:00 Anion Gap 16 (10-20) 06/28/16 06:00 BUN 14 mg/dL (7-17) 06/28/16 06:00 Creatinine 0.5 MG/DL (0.7-1.2) L 06/28/16 06:00 Est GFR ( Amer) > 60 06/28/16 06:00 Est GFR (Non-Af Amer) > 60 06/28/16 06:00 POC Glucose (mg/dL) 80 mg/dL (65-110) 06/28/16 16:24 Random Glucose 83 mg/dL (65-105) 06/28/16 06:00 Calcium 8.3 mg/dl (8.6-10.4) L 06/28/16 06:00 Phosphorus 4.1 mg/dL (2.5-4.5) 06/28/16 06:00 Magnesium 1.5 mg/dL (1.6-2.3) L 06/28/16 06:00 Total Bilirubin 0.2 mg/dL (0.2-1.3) 06/28/16 06:00 AST 29 U/L (14-36) 06/28/16 06:00 ALT 34 U/L (9-52) 06/28/16 06:00 Alkaline Phosphatase 46 U/L (38-126) 06/28/16 06:00 Troponin I < 0.0120 ng/mL (0.00-0.120) 06/25/16 19:33 Total Protein 5.9 g/dL (6.3-8.3) L 06/28/16 06:00 Albumin 2.9 g/dL (3.5-5.0) L 06/28/16 06:00 Globulin 3.0 gm/dL (2.2-3.9) 06/28/16 06:00 Albumin/Globulin Ratio 1.0 (1.0-2.1) 06/28/16 06:00 Procalcitonin < 0.05 NG/ML (0.19-0.49) L 06/26/16 16:57 Beta HCG, Quant 27587.00 mIU/ML 06/25/16 08:43 Arterial Blood Potassium 2.9 mmol/L (3.6-5.2) L 06/25/16 09:03 Urine Color Yellow (YELLOW) 06/27/16 22:13 Urine Clarity Hazy (Clear) 06/27/16 22:13 Urine pH 7.0 (5.0-8.0) 06/27/16 22:13 Ur Specific [place] 1.013 (1.003-1.030) 06/27/16 22:13 Urine Protein Negative mg/dL (NEGATIVE) 06/27/16 22:13 Urine Glucose (UA) Normal mg/dL (Normal) 06/27/16 22:13 Urine Ketones Negative mg/dL (NEGATIVE) 06/27/16 22:13 Urine Blood 1+ (NEGATIVE) H 06/27/16 22:13 Urine Nitrate Negative (NEGATIVE) 06/27/16 22:13 Urine Bilirubin Negative (NEGATIVE) 06/27/16 22:13 Urine Urobilinogen Normal mg/dL (0.2-1.0) 06/27/16 22:13 Ur Leukocyte Esterase Neg [place]/uL (Negative) 06/27/16 22:13 Urine WBC (Auto) 1 /hpf (0-5) 06/27/16 22:13 Urine RBC (Auto) 4 /hpf (0-3) H 06/27/16 22:13 Ur Squamous Epith Cells 7 /hpf (0-5) H 06/27/16 22:13 Ur Transition Epith Cell < 1 /hpf (0-3) 06/27/16 22:13 Urine Bacteria Rare (<OCC) 06/27/16 22:13 Hyaline Casts 3-5 /lpf (0-2) H 06/25/16 11:15 Urine HCG, Qual Positive (NEGATIVE) 06/25/16 11:15 Urine Opiates Screen Negative (NEGATIVE) 03/16/17 22:22 Urine Methadone Screen Negative (NEGATIVE) 06/25/16 22:22 Ur Barbiturates Screen Negative (NEGATIVE) 06/25/16 22:22 Ur Phencyclidine Scrn Negative (NEGATIVE) 06/25/16 22:22 Ur Amphetamines Screen Negative (NEGATIVE) 06/25/16 22:22 U Benzodiazepines Scrn Negative (NEGATIVE) 06/25/16 22:22 U Oth Cocaine Metabols Negative (NEGATIVE) 06/25/16 22:22 U Cannabinoids Screen Negative (NEGATIVE) 06/25/16 22:22 Blood Type B POSITIVE 06/25/16 08:43 Antibody Screen Negative 06/25/16 08:43 - Hospital Course Hospital Course: Patient is a 30 y/o F at 23 weeks with PMHx of asthma and preeclampsia. According to the , she had an asthma attack and had SOB dizziness, chest pain and loss of consciousness. EMS found the patient in a hypoxic state. She was given nebulizers, solu-medrol, epi, and magnesium by EMS and reported improvement in symptoms. Patient denies spotting or bleeding. In the ED, EKG showed sinus tachy, otherwise normal EKG. Chest XRAY the following day showed a normal size heart and nodular opacity in the medial right lower lung. Troponins were negative x 2, which made the cause of her chest pain unlikely to be cardiac. Venous dopplers LE b/l were negative and an Obstetrics U /S showed a 23 week 4 days with a heart rate of 137.2. Pulmonolgy commented on the nodular opacity but stated that pneumonia was unlikely. Pt's symptoms improved during her stay and she was able to ambulate on her own without a decrease in her O2 sats. She was also able to tolerate a normal diet. Pt. was medically stable for discharge. This is a brief overview of her stay, please review her chart for more details. - Date & Time of H&P Date of H&P: 06/28/16 Time of H&P: 08:50 Discharge Exam - Head Exam Head Exam: ATRAUMATIC, NORMOCEPHALIC - Eye Exam Eye Exam: EOMI, Normal appearance - ENT Exam ENT Exam: Mucous Membranes Moist - Neck Exam Neck exam: Full Rom - Respiratory Exam Respiratory Exam: Clear to PA & Lateral, NORMAL BREATHING PATTERN, UNREMARKABLE. absent: Wheezes - Cardiovascular Exam Cardiovascular Exam: REGULAR RHYTHM, RRR, +S1, +S2. absent: JVD - GI/Abdominal Exam GI & Abdominal Exam: Normal Bowel Sounds, Soft, Unremarkable. absent: Tenderness - Extremities Exam Extremities exam: full ROM, normal inspection - Back Exam Back exam: FULL ROM - Neurological Exam Neurological exam: Alert, Normal Gait, Oriented x3, Reflexes Normal - Psychiatric Exam Psychiatric exam: Normal Affect, Normal Mood - Skin Skin Exam: Dry, Intact, Normal Color, Warm Discharge Plan - Discharge Medications Prescriptions: Albuterol 0.083% [Albuterol 0.083% Inhal Patsy (2.5 mg/3 ml) UD] 2.5 mg INH Q4 PRN #1 PRN Reason: Shortness Of Breath Budesonide [Pulmicort Flexhaler] 90 mcg IH Q12H #1 aer.pow.[email or web address] Albuterol HFA [Ventolin HFA 90 mcg/actuation (8 g)] 2 puff IH Q6H PRN #1 inhaler PRN Reason: Shortness Of Breath - Follow Up Plan Condition: FAIR Disposition: HOME/ ROUTINE Instructions: Asthma (DC) Additional Instructions: Patient is medically stable for discharge. Please follow up with your primary care doctor within 1 week. Please return to the hospital if symptoms worsen or any new concerning symptoms arise. Thank you for allowing us to take part in your care. Referrals: Rajesh Solorzano MD [Staff Provider] - Earnest Lee MD [Staff Provider] -
== END 2016-06-28 19:00 | disposition home or self-care (01) | DRG 886 ==
LOC: C.ER 08:23 → C.9E 12:40 → C.6T 16:28
PROVIDERS: ADMIT Internal Medicine Nephrology; ATTEND Internal Medicine Nephrology
DX: O99.512 Diseases of the respiratory system complicating pregnancy, second trimester (principal); J45.902 Unspecified asthma with status asthmaticus; R09.02 Hypoxemia; Z3A.24 24 weeks gestation of pregnancy; O34.211 Maternal care for low transverse scar from previous cesarean delivery; O99.282 Endocrine, nutritional and metabolic diseases complicating pregnancy, second trimester; R73.9 Hyperglycemia, unspecified; O99.89 Other specified diseases and conditions complicating pregnancy, childbirth and the puerperium; R00.0 Tachycardia, unspecified

== ENCOUNTER 2016-08-02 15:34 | Emergency (ER) | payer MEDICAID ==
[2016-08-02] MEDS ORDERED: Albuterol-Ipratrop 3 mg / 0.5 (3 ml) UD ONE ×2 (16:01→16:46)
--- NOTE | 2016-08-02 16:06 | C.PDOC ---
History Of Present Illness 30 year old female with a history of asthma and currently 29 weeks , presents to the ED with complaints of developing sudden SOB while cleaning today. Patient states she has had extensive care due to some concern of preeclampsia since her blood pressure was noted to be high the last time she was discharged from the hospital. She notes she finished taking steroids 2 weeks ago and took 2 treatments at home with no relief. She was given Solu- Medrol and Nebulizer treatments en route with some improvement and notes the baby has not been moving as much as usual. Patient has no other complaints at this time. Time Seen by Provider: 08/02/16 15:50 Chief Complaint (Nursing): Shortness Of Breath History Per: Patient History/Exam Limitations: no limitations Onset/Duration Of Symptoms: Hrs Current Symptoms Are (Timing): Better Severity: Mild Associated Symptoms: denies: Fever, Chills, Chest Pain, Productive Cough Past Medical History Reviewed: Historical Data, Nursing Documentation, Vital Signs Vital Signs: Last Vital Signs Temp 98.6 F 08/02/16 19:02 Pulse 101 H 08/02/16 19:02 Resp 20 08/02/16 19:02 BP 125/55 L 08/02/16 19:02 Pulse Ox 98 08/02/16 19:34 - Medical History PMH: Asthma Surgical History: - [facility] Procedures TETANUS TOXOID ADMINIST (12/24/14) Family History: States: Unknown Family Hx - Social History Hx Tobacco Use: Yes Hx Alcohol Use: No Hx Substance Use: No Review Of Systems Except As Marked, All Systems Reviewed And Found Negative. Constitutional: Negative for: Fever, Chills Cardiovascular: Negative for: Chest Pain, Palpitations Respiratory: Positive for: Shortness of Breath. Negative for: Cough, Sputum Gastrointestinal: Negative for: Abdominal Pain Musculoskeletal: Negative for: Back Pain Neurological: Negative for: Weakness, Numbness Physical Exam - Physical Exam Appears: Non-toxic, No Acute Distress Skin: Normal Color, Warm, Dry Head: Atraumatic, Normacephalic Oral Mucosa: Moist Chest: Symmetrical, No Deformity Cardiovascular: Rhythm Regular, No Murmur Respiratory: No Accessory Muscle Use, No Rales, No Rhonchi, Wheezing (+Diffuse wheezing) Gastrointestinal/Abdominal: Other (+Uterus palpable through xiphoid) Extremity: Normal ROM, No Pedal Edema Neurological/Psych: Oriented x3, Normal Speech, Normal Cognition ED Course And Treatment O2 Sat by Pulse Oximetry: 98 (Room air) Pulse Ox Interpretation: Normal Progress Note: urinalysis ordered and reviewed. Patient treated with Duo-Neb,. Once stable sent for NST Medical Decision Making Medical Decision Making: Pt feeling much better, wheezing mostly resolved. Ambulated to BR without difficulty NST unremarkable Discussed observation vs dc with pt she feels comfortable going home. Plan dc with meds Disposition Counseled Patient/Family Regarding: Diagnosis, Need For Followup - Disposition Disposition: HOME/ ROUTINE Disposition Time: 19:31 Condition: GOOD Additional Instructions: Start prednisone in AM if any trouble breathing or wheezing Prescriptions: Albuterol 0.083% [Albuterol Sulfate 3 Ml] 3 ml IH QID #100 neb Prednisone [Deltasone] 2 tab PO DAILY #20 tablet Albuterol HFA [Ventolin HFA 90 mcg/actuation (8 g)] 1 puff IH QID PRN #1 puff PRN Reason: Cough Instructions: Asthma (ED) Forms: Work Excuse - Clinical Impression Clinical Impression: Asthma, Third trimester - Scribe Statement The provider has reviewed the documentation as recorded by the Scribe Amairani York. Provider Attestation: All medical record entries made by the Scribe were at my direction and personally dictated by me. I have reviewed the chart and agree that the record accurately reflects my personal performance of the history, physical exam, medical decision making, and the department course for this patient. I have also personally directed, reviewed, and agree with the discharge instructions and disposition.
[2016-08-02] MEDS ORDERED: Albuterol-Ipratrop 3 mg / 0.5 (3 ml) UD IH SCH (16:15)
[2016-08-02 18:04] LABS: RBC URINE 32 /hpf (0-3); URINE BACTERIA RARE (<OCC); URINE BILIRUBIN NEGATIVE (NEGATIVE); URINE COLOR Yellow (YELLOW); URINE GLUCOSE (UA) NORMAL (Normal); URINE KETONE TRACE mg/dL (NEGATIVE); URINE LEUKOCYTE ESTERASE NEG Leu/uL (Negative); URINE PROTEIN 2+ mg/dL (NEGATIVE); URINE UROBILINOGEN NORMAL mg/dL (0.2-1.0); WBC URINE 2 /hpf (0-5)
[2016-08-02 18:05] LABS: URINE BLOOD 1+ (NEGATIVE)
[2016-08-02 19:03] VITALS: BP 125/55; PULSE 101; RESP 20; TEMP 98.6
[2016-08-02 19:31] VITALS: O2SAT 98
--- NOTE | 2016-08-03 09:39 | OBHP ---
Datetime: 08/02/2016 18:11 IP Adm Impression: , intrauterine IP Admit Plan: Observation/Evaluation IP Admit Plan Other: Transfer back to the ER Admit Comment, IP Provider: 30yo with IUP at 29 seen and evaluated at the ER today for an asthma att ack was brought here today for NST. She denies any VB or LOF. [place]- none, FHR - Regular, NST Reactive. Assessment: IUP at 29wks NST- Reactive. Plan: Transfer back to the ER. Pt asked to f/u with Regular OB. Extremities - PN: Normal Abdomen - PN: Normal Heart - PN: Normal General - PN: Normal Presentation-Admit: Vertex FHR - Baseline A Provider: 130 Comments, ACOG Physical Exam: Abd: soft, NT, BS- present Gestation - Est Wks by US: 29.0 IP Chief Complaint: Decreased movement NICHD Variability Prov Fetus A: Moderate 6-25bpm NICHD Accel Fetus A IP Provider: 15X15 FHR Category Provider Fetus A: Category I NICHD Decel Fetus A IP Provider: None Genitourinary Exam: Normal
== END 2016-08-02 19:43 | disposition home or self-care (01) ==
LOC: C.EROB 15:34 → C.ER 15:34 → C.EROB 19:43
DX: O26.893 Other specified pregnancy related conditions, third trimester (principal); J45.909 Unspecified asthma, uncomplicated; Z3A.29 29 weeks gestation of pregnancy

== ENCOUNTER 2016-09-21 16:38 | Emergency (ER) | payer MEDICAID ==
[2016-09-21] MEDS ORDERED: Sodium Chloride 0.9% 1,000 ML IV ONE (18:27)
[2016-09-21] MEDS ORDERED: Albuterol 0.083% Inhal Sol (2.5 mg/3 mL) UD IH STA (18:27)
[2016-09-21] MEDS ORDERED: Sodium Chloride 0.9% 1,000 ML ONE (18:38)
[2016-09-21] MEDS ORDERED: Albuterol 0.083% Inhal Sol (2.5 mg/3 mL) UD ONE (18:38)
[2016-09-21 18:43] LABS: BASO % 0.1 % (0.0-2.0); EOS # 0.3 K/uL (0.0-0.7); EOS % 2.4 % (0.0-4.0); HEMATOCRIT 38.5 % (34.0-47.0); LYMPH # 2.1 K/uL (1.0-4.3); LYMPH % 17.2 % (20.0-40.0); MEAN CORPUSCULAR HEMOGLOBIN 30.1 pg (27.0-31.0); MEAN CORPUSCULAR HGB CONC 32.3 g/dL (33.0-37.0); MEAN PLATELET VOLUME 9.2 fL (7.2-11.7); MONO # 0.8 K/uL (0.0-0.8); MONO % 6.5 % (0.0-10.0); NRBC % 0.1 % (0.0-2.0); RED CELL DISTRIBUTION WIDTH 13.3 % (11.5-14.5); WHITE BLOOD COUNT 12.3 K/uL (4.8-10.8)
[2016-09-21 18:51] LABS: CHLORIDE 107 mmol/L (98-107); POTASSIUM 3.8 mmol/L (3.6-5.2); SODIUM 136 mmol/L (132-148)
[2016-09-21 18:53] LABS: AST/SGOT 21 U/L (14-36); BILIRUBIN,TOTAL 0.5 mg/dL (0.2-1.3); CARBON DIOXIDE 19 mmol/L (22-30); GFR AFRICAN-AMERICAN > 60
[2016-09-21 18:54] LABS: ALB/GLOB RATIO 1.1 (1.0-2.1); ALKALINE PHOSPHATASE 95 U/L (38-126); ALT/SGPT 22 U/L (9-52); BLOOD UREA NITROGEN 7 mg/dL (7-17); CALCIUM 8.9 mg/dl (8.6-10.4); GLUCOSE,RANDOM 99 mg/dL (65-105); TOTAL PROTEIN 6.8 g/dL (6.3-8.3)
--- NOTE | 2016-09-21 19:44 | C.PDOC ---
Time Seen by Provider: 09/21/16 18:21 Chief Complaint (Nursing): Shortness Of Breath History Per: Patient, EMS Onset/Duration Of Symptoms: Hrs (1) Current Symptoms Are (Timing): Still Present Current Respiratory Medications: See Home Med List Severity: Moderate Reports Recently: Seen In ED Additional History Per: Prior Records Past Medical History Reviewed: Historical Data, Nursing Documentation, Vital Signs Vital Signs: Last Vital Signs Temp 97.4 F L 09/21/16 16:42 Pulse 115 H 09/21/16 16:42 Resp 26 H 09/21/16 18:00 BP 138/64 09/21/16 16:42 Pulse Ox 95 09/21/16 16:42 - Medical History PMH: Asthma Other PMH: 32 weeks Surgical History: - [facility] Procedures TETANUS TOXOID ADMINIST (12/24/14) Family History: States: Unknown Family Hx - Social History Hx Tobacco Use: Yes (Quit) Hx Alcohol Use: No Hx Substance Use: No - Immunization History Hx Tetanus Toxoid Vaccination: No Hx Influenza Vaccination: No Hx Pneumococcal Vaccination: No Review Of Systems Except As Marked, All Systems Reviewed And Found Negative. Constitutional: Negative for: Fever, Weakness ENT: Negative for: Throat Pain Cardiovascular: Negative for: Chest Pain Respiratory: Positive for: Shortness of Breath, Wheezing. Negative for: Cough, Hemoptysis Gastrointestinal: Negative for: Vomiting Musculoskeletal: Negative for: Neck Pain, Leg Pain Skin: Negative for: Rash Neurological: Negative for: Weakness, Numbness, Seizures, Altered Mental Status Physical Exam - Physical Exam Appears: Non-toxic, No Acute Distress Skin: Normal Color, Warm, Dry, No Rash Head: Atraumatic, Normacephalic Eye(s): bilateral: Normal Inspection, PERRL, EOMI Neck: Normal ROM, Supple Cardiovascular: Rhythm Regular Respiratory: No Accessory Muscle Use, Wheezing Gastrointestinal/Abdominal: Soft, Other (Gravid) Back: No CVA Tenderness Extremity: Normal ROM, No Calf Tenderness Neurological/Psych: Oriented x3, Normal Motor, Normal Sensation ED Course And Treatment - Laboratory Results Result Diagrams: 09/21/16 18:39 09/21/16 18:39 Lab Interpretation: No Acute Changes O2 Sat by Pulse Oximetry: 95 Pulse Ox Interpretation: Normal Progress Note: Lungs clear. No SOB, but pt is now c/o abdominal contractions. Will tranfer to L&D. Reassessment Condition: Improved - Physician Consult Information Physician Contacted: Darrell Hatfield Outcome Of Conversation: She will evaluate pt in L&D. Progress - Interventions Interventions:: Observation, Intravenous fluid - Medications Administered Inhaled nebulized: Anticholinergic, Beta-2 agonist Intravenous: Corticosteroid (given by EMS), Other (Mg given by EMS) - Data Reviewed Data Reviewed: Lab, Old records - Patient Status Patient status: Mostly improved - Continuity of Care Discussed patient case with:: Patient, ED Nurse Discussed pt. case with customer service sales consultant/specialty: Obstetrics/Gynecology - Patient Plan Patient Plan: Transfer to (L&D) Disposition Counseled Patient/Family Regarding: Studies Performed, Diagnosis, Need For Followup - Disposition Disposition: HOME/ ROUTINE Disposition Time: 19:45 Condition: IMPROVED Additional Instructions: Follow up with your doctor this week. Return to the ER if you develop chest pain , shortness of breath, fever, worsening of symptoms or if yo have any other concerns. Prescriptions: Albuterol HFA [Ventolin HFA 90 mcg/actuation (8 g)] 2 puff IH Q4 PRN #1 unit PRN Reason: Wheezing predniSONE [predniSONE Tab] 2 tab PO DAILY #10 tab Instructions: Asthma (ED) - Clinical Impression Clinical Impression: Asthma exacerbation
[2016-09-21 19:47] VITALS: BP 122/65; PULSE 90; TEMP 98
[2016-09-21 20:00] VITALS: RESP 18; O2SAT 99
--- NOTE | 2016-09-21 20:27 | OBHP ---
Datetime: 09/21/2016 20:21 IP Adm Impression: , intrauterine ; Intact Membranes IP Chief Complaint Other: pelvic pressure/nst/asthma exerbation Admit Comment, IP Provider: at 36+weeks send from er for pelvic pressure and ctramping and whit annabelle discharge. pt was i the er for asthma exerbation. treatment was given. pt feels better. obhx 2 x c/s , 1 sab, 1 x ta pmh den med pnv all nkda psh d _c, c/s, ex lap ovarian cystec soch stopped smoking in preg pulse ox 96-97 a/p at 36+weeks with asthma exerbation/r/o uti/ ctxs ua cont yoni amnd efm ivf cont close observation Pelvic Type - PN: Adequate Extremities - PN: Normal Abdomen - PN: Normal Back - PN: Normal Breast - PN: Not Done Lungs - PN: Normal Heart - PN: Normal Thyroid - PN: Not Done Neurologic - PN: Normal HEENT - PN: Normal General - PN: Normal FHR - Baseline A Provider: 130 Contraction Comments Provider: occ Comments, ACOG Physical Exam: gravid,non tender ext no edema,no calf ten sse no pooling, noer disc ve closed/th/-3 Vital Signs Provider: Reviewed; Within Normal Limits NICHD Variability Prov Fetus A: Moderate 6-25bpm NICHD Accel Fetus A IP Provider: 10X10 FHR Category Provider Fetus A: Category I Dilatation, Provider: 0 Effacement, Provider: 0 Station, Provider: -3 Genitourinary Exam: Normal DTRs - PN: Normal
[2016-09-21 20:30] LABS: RBC URINE 6 /hpf (0-3); TRANSITIONAL EPITHIAL < 1 /hpf (0-3); URINE BACTERIA RARE (<OCC); URINE BILIRUBIN NEGATIVE (NEGATIVE); URINE BLOOD 1+ (NEGATIVE); URINE COLOR Yellow (YELLOW); URINE GLUCOSE (UA) NORMAL (Normal); URINE KETONE NEGATIVE (NEGATIVE); URINE LEUKOCYTE ESTERASE NEG Leu/uL (Negative); URINE PROTEIN NEGATIVE (NEGATIVE); URINE UROBILINOGEN NORMAL mg/dL (0.2-1.0); WBC URINE < 1 /hpf (0-5)
--- NOTE | 2016-09-21 21:07 | OBDCSUM ---
Datetime: 09/21/2016 21:04 Discharged to, Provider: Home Follow up at, Provider: Dr Art Follow up in weeks, Provider: 1 day Disch Activity Restrictions: No sexual activity; Nothing in vagina - [place], tampons, douche Discharge Comment, Provider: dc home ptl given po hyration f/u Dr Art in 1 day Discharge Diagnosis Prov Other: 36weeks pelvic pressure nst asthma exerbation
== END 2016-09-21 19:59 | disposition home or self-care (01) ==
LOC: C.EROB 16:38 → C.ER 16:38 → C.EROB 19:59
DX: J45.901 Unspecified asthma with (acute) exacerbation (principal); O26.893 Other specified pregnancy related conditions, third trimester; Z3A.36 36 weeks gestation of pregnancy
CPT/HCPCS: 80053; 81001; 83880; 85025; 94150; 94640; 96360; 99285; J7040

== ENCOUNTER 2017-01-22 23:07 | Inpatient (IN) | payer MEDICAID ==
[2017-01-22 23:08] VITALS: BMI 26.6
[2017-01-22] MEDS ORDERED: Sodium Chloride 0.9% 1,000 ML IV ONE (23:44)
[2017-01-22] MEDS ORDERED: Sodium Chloride 0.9% 1,000 ML ONE (23:56)
[2017-01-22 23:58] LABS: BASO % 0.3 % (0.0-2.0); EOS # 0.2 K/uL (0.0-0.7); EOS % 2.2 % (0.0-4.0); HEMATOCRIT 39.8 % (34.0-47.0); LYMPH # 1.3 K/uL (1.0-4.3); LYMPH % 12.4 % (20.0-40.0); MEAN CELL VOLUME 89.5 fL (81.0-99.0); MEAN CORPUSCULAR HEMOGLOBIN 30.1 pg (27.0-31.0); MEAN CORPUSCULAR HGB CONC 33.6 g/dL (33.0-37.0); MEAN PLATELET VOLUME 9.3 fL (7.2-11.7); MONO # 0.8 K/uL (0.0-0.8); MONO % 7.2 % (0.0-10.0); RED CELL DISTRIBUTION WIDTH 13.2 % (11.5-14.5); WHITE BLOOD COUNT 10.8 K/uL (4.8-10.8)
[2017-01-23 00:03] LABS: RBC URINE 76 /hpf (0-3); URINE BACTERIA FEW (<OCC); URINE BILIRUBIN NEGATIVE (NEGATIVE); URINE BLOOD 2+ (NEGATIVE); URINE COLOR Amber (YELLOW); URINE GLUCOSE (UA) NORMAL (Normal); URINE KETONE NEGATIVE (NEGATIVE); URINE LEUKOCYTE ESTERASE TRACE Leu/uL (Negative); URINE PROTEIN 3+ mg/dL (NEGATIVE); WBC URINE 10 /hpf (0-5)
[2017-01-23 00:08] LABS: CHLORIDE 100 mmol/L (98-107)
[2017-01-23 00:09] LABS: SODIUM 134 mmol/L (132-148)
[2017-01-23 00:11] LABS: AST/SGOT 22 U/L (14-36); BILIRUBIN,TOTAL 0.6 mg/dL (0.2-1.3); BLOOD UREA NITROGEN 12 mg/dL (7-17); CARBON DIOXIDE 22 mmol/L (22-30); GFR AFRICAN-AMERICAN > 60; TOTAL PROTEIN 7.7 g/dL (6.3-8.3)
[2017-01-23 00:12] LABS: ALKALINE PHOSPHATASE 82 U/L (38-126); ALT/SGPT 34 U/L (9-52); CALCIUM 8.7 mg/dl (8.6-10.4); GLUCOSE,RANDOM 175 mg/dL (65-105)
[2017-01-23] MEDS ORDERED: Potassium Chloride 20 mEq ER Tab PO STA (00:22)
[2017-01-23] MEDS ORDERED: Potassium Chloride 20 mEq ER Tab PO ONE ×2 (00:30→00:34)
[2017-01-23] MEDS ORDERED: Lactated Ringer's 1,000 ML IVB ONE (00:39)
--- NOTE | 2017-01-23 00:55 | C.PDOC ---
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 Headache. Number Of Syncopal Episodes: 1 Activity At Onset Of Symptoms: Had Just Stood up Associated Symptoms Preceding Syncopal Episode: Lightheadedness, Worse With Standing Seizure Or Post-ictal Symptoms: None Possible Causative Factor(s): Decreased PO Intake (?) Fall Associated With With Symptoms: No Injury As Result Of Fall Severity: Moderate Additional History Per: Prior Records - Symptoms Of CVA Recent Head Trauma: No Past Medical History Reviewed: Historical Data, Nursing Documentation, Vital Signs Vital Signs: Last Vital Signs Temp 97.3 F L 01/22/17 23:13 Pulse 82 01/22/17 23:13 Resp 18 01/22/17 23:13 BP 87/56 L 01/22/17 23:13 Pulse Ox 99 01/23/17 00:57 - Medical History PMH: Asthma Surgical History: (with tubal ligation) - [facility] Procedures EXTRACTION OF POC, LOW CERVICAL, OPEN APPROACH (10/14/16) INTRODUCTION OF SERUM/TOX/VACCINE INTO MUSCLE, PERC APPROACH (10/14/16) MONITORING OF POC, CARDIAC RATE, WOOD GRINDER APPROACH (10/14/16) OCCLUSION OF BILATERAL FALLOPIAN TUBES, OPEN APPROACH (10/14/16) TETANUS TOXOID ADMINIST (12/24/14) Family History: States: Unknown Family Hx - Social History Hx Tobacco Use: No (Quit) Hx Alcohol Use: Yes Hx Substance Use: No - Immunization History Hx Tetanus Toxoid Vaccination: No Hx Influenza Vaccination: No Hx Pneumococcal Vaccination: No Review Of Systems Except As Marked, All Systems Reviewed And Found Negative. Constitutional: Positive for: Malaise. Negative for: Fever Cardiovascular: Negative for: Chest Pain Respiratory: Negative for: Shortness of Breath, Hemoptysis Gastrointestinal: Positive for: Abdominal Pain (for 4 days, LLQ.). Negative for : Vomiting, Diarrhea Genitourinary: Negative for: Dysuria, Vaginal Bleeding Musculoskeletal: Positive for: Back Pain. Negative for: Neck Pain, Leg Pain Skin: Negative for: Rash Neurological: Positive for: Headache (for 4 days.). Negative for: Weakness, Numbness, Seizures Physical Exam - Physical Exam Appears: No Acute Distress Skin: Normal Color, Warm, Dry, No Rash Head: Atraumatic, Normacephalic Eye(s): bilateral: PERRL, EOMI Neck: Normal ROM, Supple Cardiovascular: Rhythm Regular Respiratory: Normal Breath Sounds, No Accessory Muscle Use Gastrointestinal/Abdominal: Soft, Tenderness (LLQ), No Guarding, No Rebound Extremity: Normal ROM, No Pedal Edema, No Calf Tenderness Neurological/Psych: Oriented x3, Normal Motor, Normal Sensation ED Course And Treatment - Laboratory Results Result Diagrams: 01/22/17 23:55 01/22/17 23:55 Interpretation Of Abnormal: Mild hypokalemia. Urine POC: Negative ECG: Interpreted By Me, Viewed By Me ECG Rhythm: Sinus Rhythm, Nonspecific Changes Rate From EC O2 Sat by Pulse Oximetry: 99 Pulse Ox Interpretation: Normal Progress - Interventions Interventions:: Observation, Intravenous fluid - Medications Administered Oral: Other (KCl) - Data Reviewed Data Reviewed: Lab, EKG, Old records - Patient Status Patient status: Partially improved - Continuity of Care Discussed patient case with:: Patient, ED Nurse Disposition - Disposition Disposition Time: 01:00 Condition: FAIR - Clinical Impression Clinical Impression: Syncope, LLQ pain, Headache Physician Patient Turnover Patient Signed Over To: Pankaj Nolasco Handoff Comments: to f/up CT scans and reassess/dispo pt.
[2017-01-23] MEDS ORDERED: Lactated Ringer's 1,000 ML ONE (01:17)
--- NOTE | 2017-01-23 01:28 | CT ---
EXAM: CT Abdomen and Pelvis Without Intravenous Contrast CLINICAL HISTORY: 31 years old, female; Pain; Abdominal pain; Additional info: Llq pain, microscopic hematuria TECHNIQUE: Axial computed tomography images of the abdomen and pelvis without intravenous contrast. All CT scans at this facility use one or more dose reduction techniques, viz.: automated exposure control; ma/kV adjustment per patient size (including targeted exams where dose is matched to indication; i.e. head); or iterative reconstruction technique. Coronal and sagittal reformatted images were created and reviewed. COMPARISON: No relevant prior studies available. FINDINGS: Limitations: Motion artifact - mild. Lower thorax: Minimal atelectasis. 0.7 cm RIGHT middle lobe nodule. Small contrast within distal esophagus. ABDOMEN: Liver: Unremarkable. Gallbladder and bile ducts: No calcified stones. No ductal dilation. Pancreas: Unremarkable. No ductal dilation. Spleen: No splenomegaly. Adrenals: No mass. Kidneys and ureters: No renal calculi. No hydronephrosis. Stomach and bowel: Small contrast within stomach. No definite mural thickening. No obstruction. Appendix: Normal caliber. No inflammation. PELVIS: Bladder: Unremarkable. No stones. Reproductive: Unremarkable as visualized. ABDOMEN and PELVIS: Intraperitoneal space: No significant fluid collection. No free air. Bones/joints: No acute fracture. Soft tissues: Unremarkable. Vasculature: Unremarkable. No aneurysm. Lymph nodes: No pathologically enlarged lymph nodes. IMPRESSION: 1. No CT evidence of urolithiasis. 2. Pulmonary nodule, nonspecific. Followup as clinically warranted.
--- NOTE | 2017-01-23 01:31 | CT ---
EXAM: CT Head Without Intravenous Contrast CLINICAL HISTORY: 31 years old, female; Pain; Headache; Additional info: Headache, syncope TECHNIQUE: Axial computed tomography images of the head/brain without intravenous contrast. All CT scans at this facility use one or more dose reduction techniques, viz.: automated exposure control; ma/kV adjustment per patient size (including targeted exams where dose is matched to indication; i.e. head); or iterative reconstruction technique. Coronal and sagittal reformatted images were created and reviewed. COMPARISON: No relevant prior studies available. FINDINGS: Brain: No intracranial hemorrhage. No mass. No definite edema. Ventricles: No hydrocephalus. Bones/joints: No acute fracture. Soft tissues: Unremarkable. Sinuses: No acute sinusitis. Mastoid air cells: No mastoid effusion. Orbits: Unremarkable as visualized. IMPRESSION: 1. No acute intracranial abnormality.
[2017-01-23 05:14] VITALS: RESP 20
[2017-01-23 13:40] LABS: BASO % 0.6 % (0.0-2.0); EOS # 0.3 K/uL (0.0-0.7); EOS % 4.2 % (0.0-4.0); HEMATOCRIT 39.1 % (34.0-47.0); LYMPH # 1.6 K/uL (1.0-4.3); LYMPH % 19.8 % (20.0-40.0); MEAN CELL VOLUME 90.5 fL (81.0-99.0); MEAN CORPUSCULAR HEMOGLOBIN 29.8 pg (27.0-31.0); MEAN CORPUSCULAR HGB CONC 32.9 g/dL (33.0-37.0); MEAN PLATELET VOLUME 9.6 fL (7.2-11.7); MONO # 0.8 K/uL (0.0-0.8); MONO % 10.2 % (0.0-10.0); RED CELL DISTRIBUTION WIDTH 13.2 % (11.5-14.5); WHITE BLOOD COUNT 8.2 K/uL (4.8-10.8)
[2017-01-23 13:54] LABS: CHLORIDE 106 mmol/L (98-107); POTASSIUM 3.9 mmol/L (3.6-5.2); SODIUM 138 mmol/L (132-148)
[2017-01-23 13:56] LABS: BILIRUBIN,TOTAL 0.4 mg/dL (0.2-1.3); GFR AFRICAN-AMERICAN > 60
[2017-01-23 13:57] LABS: ALB/GLOB RATIO 0.8 (1.0-2.1); ALKALINE PHOSPHATASE 81 U/L (38-126); ALT/SGPT 27 U/L (9-52); AST/SGOT 20 U/L (14-36); BLOOD UREA NITROGEN 6 mg/dL (7-17); CALCIUM 8.7 mg/dl (8.6-10.4); CARBON DIOXIDE 23 mmol/L (22-30); GLUCOSE,RANDOM 98 mg/dL (65-105); TOTAL PROTEIN 7.5 g/dL (6.3-8.3)
--- NOTE | 2017-01-23 13:59 | CARD ---
APPROVED REPORT EXAM: Two-dimensional and M-mode echocardiogram with Doppler and color Doppler. Other Information Quality : GoodRhythm : NSR INDICATION Syncope ASTHMA M-Mode DIMENSIONS RVDd1.64 (2.1-3.2cm)Left Atrium (MM)3.34 (2.5-4.0cm) IVSd1.09 (0.7-1.1cm)Aortic Root2.64 (2.2-3.7cm) LVDd4.62 (4.0-5.6cm)Aortic Cusp Exc.1.70 (1.5-2.0cm) PWd1.12 (0.7-1.1cm)FS (%) 36 % LVDs2.98 (2.0-3.8cm)LVEF (%)65 (>50%) Aortic Valve AoV Peak Oeunjjuj977.7cm/Frida Peak GR.14mmHg Mitral Valve MV E Qwkquddk26.4cm/sMV A Vrhzanqt91.4cm/sE/A ratio1.2 TDI E/Lateral E'0.0E/Medial E'0.0 Tricuspid Valve TR Peak [id number]/sTR Peak Gr.[id number] LEFT VENTRICLE The left ventricle is normal size. There is normal left ventricular wall thickness. The left ventricular function is normal. The left ventricular ejection fraction is within the normal range. There is normal LV segmental wall motion. The left ventricular diastolic function is normal. No left ventricle thrombus noted on this study. There is no ventricular septal defect visualized. There is no left ventricular aneurysm. There is no mass noted in the left ventricle. RIGHT VENTRICLE The right ventricle is normal size. There is normal right ventricular wall thickness. The right ventricular systolic function is normal. ATRIA The left atrium size is normal. The right atrium size is normal. The interatrial septum is intact with no evidence for an atrial septal defect. AORTIC VALVE The aortic valve is normal in structure. No aortic regurgitation is present. There is no aortic valvular stenosis. There is no aortic valvular vegetation. MITRAL VALVE The mitral valve is normal in structure. There is no mitral valve stenosis. There is no mitral valve regurgitation noted. TRICUSPID VALVE The tricuspid valve is normal in structure. There is no tricuspid valve regurgitation noted. PULMONIC VALVE The pulmonary valve is normal in structure. There is no pulmonic valvular regurgitation. GREAT VESSELS The aortic root is normal in size. The ascending aorta is normal in size. The pulmonary artery is normal. The IVC is normal in size and collapses >50% with inspiration. PERICARDIAL EFFUSION There is no pericardial effusion. <Conclusion> NORMAL STUDY.
--- NOTE | 2017-01-23 17:11 | CP.PCM.CON ---
History of Present Illness - History of Present Illness History of Present Illness: CONSULT DICTATED NEW SYNCOPAL EXCESSIVE SLEEPY NON FOCAL NEEDS MRI/EEG NO AED NOW Past Patient History - Infectious Disease Hx of Infectious Diseases: None - Past Medical History & Family History Past Medical History?: Yes - Past Social History Smoking Status: Light Smoker < 10 Cigarettes Daily - CARDIAC Hx Cardiac Disorders: No - PULMONARY Hx Respiratory Disorders: Yes Hx Asthma: Yes - NEUROLOGICAL Hx Neurological Disorder: No - HEENT Hx HEENT Problems: No - RENAL Hx Chronic Kidney Disease: No - ENDOCRINE/METABOLIC Hx Endocrine Disorders: No - HEMATOLOGICAL/ONCOLOGICAL Hx Blood Disorders: No - INTEGUMENTARY Hx Dermatological Problems: No - MUSCULOSKELETAL/RHEUMATOLOGICAL Hx Falls: No - GASTROINTESTINAL Hx Gastrointestinal Disorders: No - GENITOURINARY/GYNECOLOGICAL Hx Genitourinary Disorders: No - PSYCHIATRIC Hx Substance Use: No - SURGICAL HISTORY Hx Surgeries: Yes Hx Section: Yes Hx Tubal Ligation: Yes Other/Comment: "3 c section, 1 D&C, 1 , 1 cysct and 2 tumors removal in ovaries" - ANESTHESIA Hx Anesthesia: Yes Hx Anesthesia Reactions: No Hx Malignant Hyperthermia: No Meds Allergies/Adverse Reactions: Allergies Allergy/AdvReac Type Severity Reaction Status Date / Time kiwi Allergy ITCHING Verified 09/21/16 16:49 - Medications Medications: Current Medications Acetaminophen (Tylenol 325mg Tab) 650 mg PO Q6 PRN PRN Reason: Pain, moderate (4-7) Last Admin: 01/23/17 14:05 Dose: 650 mg Pneumococcal Polyvalent Vaccine (Pneumovax 23 Vaccine) 0.5 ml IM .ONCE ONE Stop: 01/25/17 10:01 Results - Vital Signs Recent Vital Signs: Last Vital Signs Temp 97.6 F 01/23/17 05:09 Pulse 95 H 01/23/17 12:13 Resp 20 01/23/17 05:09 BP 100/64 01/23/17 05:09 Pulse Ox 95 01/23/17 05:09 - Labs Result Diagrams: 01/23/17 13:29 01/23/17 13:29 Labs: Laboratory Results - last 24 hr 01/22/17 01/22/17 01/22/17 23:55 23:55 23:55 WBC 10.8 RBC 4.45 Hgb 13.4 Hct 39.8 MCV 89.5 D MCH 30.1 MCHC 33.6 RDW 13.2 Plt Count 300 MPV 9.3 Neut % (Auto) 77.9 H Lymph % (Auto) 12.4 L [place] % (Auto) 7.2 Eos % (Auto) 2.2 Baso % (Auto) 0.3 Neut # 8.4 H Lymph # 1.3 [place] # 0.8 Eos # 0.2 Baso # 0.0 Sodium 134 Potassium 3.0 L Chloride 100 Carbon Dioxide 22 Anion Gap 15 BUN 12 Creatinine 0.7 Est GFR ( Amer) > 60 Est GFR (Non-Af Amer) > 60 POC Glucose (mg/dL) Random Glucose 175 H Calcium 8.7 Magnesium Total Bilirubin 0.6 AST 22 ALT 34 Alkaline Phosphatase 82 Troponin I < 0.0120 Total Protein 7.7 Albumin 3.9 Globulin 3.8 Albumin/Globulin Ratio 1.0 Urine Color [place]asia Urine Clarity Hazy Urine pH 5.0 Ur Specific [place] 1.025 Urine Protein 3+ H Urine Glucose (UA) Normal Urine Ketones Negative Urine Blood 2+ H Urine Nitrate Negative Urine Bilirubin Negative Urine Urobilinogen 4.0 H Ur Leukocyte Esterase Trace Urine WBC (Auto) 10 H Urine RBC (Auto) 76 H Ur Squamous Epith Cells 10 H Urine Bacteria Few H Urine HCG, Qual Negative 01/22/17 01/23/17 01/23/17 23:59 00:39 13:29 WBC RBC Hgb Hct MCV MCH MCHC RDW Plt Count MPV Neut % (Auto) Lymph % (Auto) [place] % (Auto) Eos % (Auto) Baso % (Auto) Neut # Lymph # [place] # Eos # Baso # Sodium 138 Potassium 3.9 Chloride 106 Carbon Dioxide 23 Anion Gap 14 BUN 6 L Creatinine 0.5 L Est GFR ( Amer) > 60 Est GFR (Non-Af Amer) > 60 POC Glucose (mg/dL) 192 H Random Glucose 98 Calcium 8.7 Magnesium 2.0 Total Bilirubin 0.4 AST 20 ALT 27 Alkaline Phosphatase 81 Troponin I Total Protein 7.5 Albumin 3.3 L Globulin 4.2 H Albumin/Globulin Ratio 0.8 L Urine Color Urine Clarity Urine pH Ur Specific [place] Urine Protein Urine Glucose (UA) Urine Ketones Urine Blood Urine Nitrate Urine Bilirubin Urine Urobilinogen Ur Leukocyte Esterase Urine WBC (Auto) Urine RBC (Auto) Ur Squamous Epith Cells Urine Bacteria Urine HCG, Qual 01/23/17 13:29 WBC 8.2 RBC 4.32 Hgb 12.9 Hct 39.1 MCV 90.5 MCH 29.8 MCHC 32.9 L RDW 13.2 Plt Count 271 MPV 9.6 Neut % (Auto) 65.2 Lymph % (Auto) 19.8 L [place] % (Auto) 10.2 H Eos % (Auto) 4.2 H Baso % (Auto) 0.6 Neut # 5.3 Lymph # 1.6 [place] # 0.8 Eos # 0.3 Baso # 0.0 Sodium Potassium Chloride Carbon Dioxide Anion Gap BUN Creatinine Est GFR ( Amer) Est GFR (Non-Af Amer) POC Glucose (mg/dL) Random Glucose Calcium Magnesium Total Bilirubin AST ALT Alkaline Phosphatase Troponin I Total Protein Albumin Globulin Albumin/Globulin Ratio Urine Color Urine Clarity Urine pH Ur Specific [place] Urine Protein Urine Glucose (UA) Urine Ketones Urine Blood Urine Nitrate Urine Bilirubin Urine Urobilinogen Ur Leukocyte Esterase Urine WBC (Auto) Urine RBC (Auto) Ur Squamous Epith Cells Urine Bacteria Urine HCG, Qual
--- NOTE | 2017-01-23 19:09 | CP.PCM.HP ---
Past Patient History - Infectious Disease Hx of Infectious Diseases: None - Past Medical History & Family History Past Medical History?: Yes - Past Social History Smoking Status: Light Smoker < 10 Cigarettes Daily - CARDIAC Hx Cardiac Disorders: No - PULMONARY Hx Respiratory Disorders: Yes Hx Asthma: Yes - NEUROLOGICAL Hx Neurological Disorder: No - HEENT Hx HEENT Problems: No - RENAL Hx Chronic Kidney Disease: No - ENDOCRINE/METABOLIC Hx Endocrine Disorders: No - HEMATOLOGICAL/ONCOLOGICAL Hx Blood Disorders: No - INTEGUMENTARY Hx Dermatological Problems: No - MUSCULOSKELETAL/RHEUMATOLOGICAL Hx Falls: No - GASTROINTESTINAL Hx Gastrointestinal Disorders: No - GENITOURINARY/GYNECOLOGICAL Hx Genitourinary Disorders: No - PSYCHIATRIC Hx Substance Use: No - SURGICAL HISTORY Hx Surgeries: Yes Hx Section: Yes Hx Tubal Ligation: Yes Other/Comment: "3 c section, 1 D&C, 1 , 1 cysct and 2 tumors removal in ovaries" - ANESTHESIA Hx Anesthesia: Yes Hx Anesthesia Reactions: No Hx Malignant Hyperthermia: No Meds Allergies/Adverse Reactions: Allergies Allergy/AdvReac Type Severity Reaction Status Date / Time kiwi Allergy ITCHING Verified 09/21/16 16:49 Physical Exam - Constitutional Appears: Well - Head Exam Head Exam: ATRAUMATIC, NORMAL INSPECTION, NORMOCEPHALIC - Eye Exam Eye Exam: EOMI, Normal appearance, PERRL Pupil Exam: NORMAL ACCOMODATION, PERRL - ENT Exam ENT Exam: Mucous Membranes Moist, Normal Exam - Neck Exam Neck exam: Positive for: Normal Inspection - Respiratory Exam Respiratory Exam: Decreased Breath Sounds - Cardiovascular Exam Cardiovascular Exam: REGULAR RHYTHM, +S1, +S2 - GI/Abdominal Exam GI & Abdominal Exam: Diminished Bowel Sounds - Rectal Exam Rectal Exam: Deferred Results - Vital Signs Recent Vital Signs: Last Vital Signs Temp 98.5 F 01/23/17 15:15 Pulse 72 01/23/17 15:15 Resp 20 01/23/17 15:15 BP 96/54 L 01/23/17 15:15 Pulse Ox 95 01/23/17 15:15 - Labs Result Diagrams: 01/23/17 13:29 01/23/17 13:29 Labs: Laboratory Results - last 24 hr 01/22/17 01/22/17 01/22/17 23:55 23:55 23:55 WBC 10.8 RBC 4.45 Hgb 13.4 Hct 39.8 MCV 89.5 D MCH 30.1 MCHC 33.6 RDW 13.2 Plt Count 300 MPV 9.3 Neut % (Auto) 77.9 H Lymph % (Auto) 12.4 L [place] % (Auto) 7.2 Eos % (Auto) 2.2 Baso % (Auto) 0.3 Neut # 8.4 H Lymph # 1.3 [place] # 0.8 Eos # 0.2 Baso # 0.0 Sodium 134 Potassium 3.0 L Chloride 100 Carbon Dioxide 22 Anion Gap 15 BUN 12 Creatinine 0.7 Est GFR ( Amer) > 60 Est GFR (Non-Af Amer) > 60 POC Glucose (mg/dL) Random Glucose 175 H Calcium 8.7 Magnesium Total Bilirubin 0.6 AST 22 ALT 34 Alkaline Phosphatase 82 Troponin I < 0.0120 C-React Prot High Sens Total Protein 7.7 Albumin 3.9 Globulin 3.8 Albumin/Globulin Ratio 1.0 Free T4 TSH 3rd Generation Prolactin Urine Color Tasia Urine Clarity Hazy Urine pH 5.0 Ur Specific [place] 1.025 Urine Protein 3+ H Urine Glucose (UA) Normal Urine Ketones Negative Urine Blood 2+ H Urine Nitrate Negative Urine Bilirubin Negative Urine Urobilinogen 4.0 H Ur Leukocyte Esterase Trace Urine WBC (Auto) 10 H Urine RBC (Auto) 76 H Ur Squamous Epith Cells 10 H Urine Bacteria Few H Urine HCG, Qual Negative 01/22/17 01/23/17 01/23/17 23:59 00:39 13:29 WBC RBC Hgb Hct MCV MCH MCHC RDW Plt Count MPV Neut % (Auto) Lymph % (Auto) [place] % (Auto) Eos % (Auto) Baso % (Auto) Neut # Lymph # [place] # Eos # Baso # Sodium 138 Potassium 3.9 Chloride 106 Carbon Dioxide 23 Anion Gap 14 BUN 6 L Creatinine 0.5 L Est GFR ( Amer) > 60 Est GFR (Non-Af Amer) > 60 POC Glucose (mg/dL) 192 H Random Glucose 98 Calcium 8.7 Magnesium 2.0 Total Bilirubin 0.4 AST 20 ALT 27 Alkaline Phosphatase 81 Troponin I C-React Prot High Sens Total Protein 7.5 Albumin 3.3 L Globulin 4.2 H Albumin/Globulin Ratio 0.8 L Free T4 TSH 3rd Generation Prolactin Urine Color Urine Clarity Urine pH Ur Specific [place] Urine Protein Urine Glucose (UA) Urine Ketones Urine Blood Urine Nitrate Urine Bilirubin Urine Urobilinogen Ur Leukocyte Esterase Urine WBC (Auto) Urine RBC (Auto) Ur Squamous Epith Cells Urine Bacteria Urine HCG, Qual 01/23/17 01/23/17 01/23/17 13:29 17:38 17:38 WBC 8.2 RBC 4.32 Hgb 12.9 Hct 39.1 MCV 90.5 MCH 29.8 MCHC 32.9 L RDW 13.2 Plt Count 271 MPV 9.6 Neut % (Auto) 65.2 Lymph % (Auto) 19.8 L [place] % (Auto) 10.2 H Eos % (Auto) 4.2 H Baso % (Auto) 0.6 Neut # 5.3 Lymph # 1.6 [place] # 0.8 Eos # 0.3 Baso # 0.0 Sodium Potassium Chloride Carbon Dioxide Anion Gap BUN Creatinine Est GFR ( Amer) Est GFR (Non-Af Amer) POC Glucose (mg/dL) Random Glucose Calcium Magnesium Total Bilirubin AST ALT Alkaline Phosphatase Troponin I C-React Prot High Sens > 15.00 H Total Protein Albumin Globulin Albumin/Globulin Ratio Free T4 1.30 TSH 3rd Generation 0.40 L Prolactin 27.4 H Urine Color Urine Clarity Urine pH Ur Specific [place] Urine Protein Urine Glucose (UA) Urine Ketones Urine Blood Urine Nitrate Urine Bilirubin Urine Urobilinogen Ur Leukocyte Esterase Urine WBC (Auto) Urine RBC (Auto) Ur Squamous Epith Cells Urine Bacteria Urine HCG, Qual
[2017-01-24] MEDS: Enoxaparin 60 mg Syringe SC SCH ×3 (00:25→21:27)
--- NOTE | 2017-01-24 00:56 | CON ---
CARDIOLOGY CONSULTATION DATE: REASON FOR CONSULTATION: Syncopal episode. HISTORY OF PRESENT ILLNESS: The patient is a 31-year-old female, who has no significant past medical history, who presented because of the syncopal episode. The patient describes that after she left the car that her was driving and by the sidewalk, she felt dizzy and collapsed to the floor. According to the patient, there were no witnessed seizure activity as per the . The patient did feel lightheadedness, but does not report experiencing palpitation. The patient has no prior symptoms of nausea or vomiting. The patient is unaware of any similar episode in the past. MENSTRUAL HISTORY: The patient just finished her menses and she had tubal ligation in the past. MEDICATIONS: The patient was not on any medications at home and currently she is on Tylenol 650 mg q. 6 hours p.r.n. REVIEW OF SYSTEMS: No recent nausea or vomiting, no fever or chills, no chest pain and no palpitation. PHYSICAL EXAMINATION GENERAL: The patient is a young middle-aged female who does not appears to be in any acute distress. VITAL SIGNS: Blood pressure 100/64, heart rate 80, temperature 97.6, respirations 20. HEENT: Normocephalic. NECK: No JVD. CHEST: Clear. HEART: S1 and S2 regular. ABDOMEN: Soft. EXTREMITIES: No edema. LABORATORY DATA: Today's SMA-7 is within normal limit except for BUN and creatinine of 6 and 0.5. Yesterday's potassium was 3.0 and the patient did receive potassium replacement once her troponin is negative. CBC: WBC 8.2, hemoglobin 12.9, hematocrit 39.1, platelet count 171,000. Echocardiography study was reported as a normal study. EKG revealed sinus rhythm at a rate of 100 and prolonged QT interval on admission. ASSESSMENT: 1. Syncopal episode. 2. Hypokalemia on admission. 3. Pulmonary nodule. RECOMMENDATIONS: Repeat 12-lead EKG and continue telemetry monitoring. If the patient' symptoms of dizziness persist, consider 24-hour Holter monitor. At this point, the patient's syncopal episode most likely related to dehydration and postural hypotension. In the meantime, I will request D-dimer. Eligio Marin MD
--- NOTE | 2017-01-24 05:20 | CON ---
DATE: ATTENDING PHYSICIAN: Pool Collins MD. LOCATION: Room #657, bed B. REASON FOR CONSULTATION: Syncopal attack. CHIEF COMPLAINT: The patient was brought into [facility] following an episode of syncopal attack while she was getting out of the car. From neurological point of view, I was called in to evaluate her for further management. HISTORY OF PRESENT ILLNESS: Ms. Vicki Boston is a 31-year-old right-handed female, in usual state of health, while she was trying to get out of the car, she felt lightheaded. The next thing she realized she was about to fall on the floor, being caught by her . No history of witnessed tonic-clonic activities, bowel or bladder incontinence at the scene. No history of bleeding from her mouth or bitten tongue. No similar episodes had happened in the past as per patient. However, she has been suffering from some migraine headache and profuse sweating for the last few days. PAST MEDICAL HISTORY: She is three months' . PERSONAL HISTORY: Denies alcohol use. Denies substance abuse. She has a history of tobacco smoking in the past; however, she quit. REVIEW OF SYSTEMS: A 16-point system being reviewed; from neuro, syncopal attack. MEDICATIONS: Tylenol for her headache at present. PHYSICAL EXAMINATION: VITAL SIGNS: Her blood pressure 100/64, mean arterial pressure of 76, respiratory rate 16, and temperature afebrile. NECK: Supple. No carotid bruit. HEART: Heart sounds are regular. CHEST: Fair air entry. EXTREMITIES: No edema in the legs. NEUROLOGIC EXAMINATION: The patient is very sleepy, however, arousable on calling her name. Her speech is intact. Cranial Nerve Examination: Visual field intact. Pupils react to light. Extraocular movements are normal. No nystagmus. No facial sensory deficit. No facial asymmetry. Hearing is normal. Tongue is midline. Good gag. Motor Examination: On outstretched hand with eyes closed, no drift noted. Power is symmetric on either side. Deep tendon reflexes are absent throughout. Plantars are downgoing. Sensory examination: Responds to pain symmetrically on both sides. Coordination: [id number] test is intact. Gait is deferred at this time because of her excessive sleepiness. WORKUP: CT of the head reviewed, no acute pathology is noted. BLOOD WORKUP: WBC 8.2, hemoglobin 12.9, hematocrit 39.1, and platelet 271. GFR more than 60. Sodium 138, potassium 3.6, chloride 106, bicarbonate 24, BUN 6, and creatinine 0.5. Urinalysis shows 3+proteinuria, 2+ blood, urobilinogen 4+, and 76 rbc's with 10 wbc's. CONCLUSION: Ms. Vicki Boston has been presenting with syncopal attack not associating with any seizure activities. Her symptoms probably are vasovagal attack secondary to her underlying urinary tract infection and hypoperfusion. Considering her excessive sleepiness, this could be postictal phenomenon as well. RECOMMENDATIONS: 1. Appropriate antibiotics for her urinary tract infection. 2. Electroencephalogram. 3. MRI of the brain to rule out any space occupying lesion. If the patient is stable for the next 24-hour period, the patient can be discharged and can be followed as an outpatient. Chance Galindo MD
[2017-01-24 09:26] LABS: FREE T4 1.1 ng/dL (0.78-2.19)
[2017-01-24 09:40] LABS: THYROID STIMULATING HORMONE 0.44 mIU/L (0.46-4.68)
[2017-01-24] MEDS ORDERED: Iodixanol 320 MG/ML 100 ML BOTTLE IV ONE (10:00)
[2017-01-24 11:00] LABS: FDP INTERPRETATION NEGATIVE (NEGATIVE); FDP QUANTITY <10 ug/mL (<10); FIBRINOGEN 616 mg/dL (200-400); INR 1.2; PARTIAL THROMBOPLASTIN TIME 35 SECONDS (21-34)
--- NOTE | 2017-01-24 15:15 | CT ---
PROCEDURE: CT Angiography of the Brain. HISTORY: venous thrombosis COMPARISON: None available. TECHNIQUE: CT angiography of the intracranial arteries was performed. Coronal and sagittal maximum intensity projection reformated images were generated. 100 mL of Visipaque 320 was injected intravenously. Total exam DLP: 126.[address] exam was performed using one or more of the following dose reduction techniques: Automated exposure control, adjustment of the mA and/or kV according to patient size, and/or use of iterative reconstruction technique. FINDINGS: INTERNAL CEREBRAL ARTERIES: Unremarkable. The skull base, petrous, cavernous and supraclinoid segments are bilaterally widely patent. ANTERIOR CEREBRAL ARTERIES: Unremarkable. A1 and A2 segments are widely patent. Smaller distal branches unremarkable, as visualized. MIDDLE CEREBRAL ARTERIES: Unremarkable. M1 and M2 segments are widely patent. Perisylvian branches grossly symmetric. POSTERIOR CIRCULATION: Basilar Artery: Unremarkable. Distal Vertebral Arteries: Unremarkable. Posterior Cerebral Arteries: Unremarkable. Posterior Inferior Cerebellar Arteries: Unremarkable. ANEURYSM/ VASCULAR MALFORMATIONS: None. OTHER FINDINGS: There is no evidence of thrombosis in the sagittal transverse and straight dural sinuses. IMPRESSION: Unremarkable CT Angiography of the Brain. No evidence of thrombosis in the visualized portion of the dural sinuses of the brain.
--- NOTE | 2017-01-24 19:42 | CP.PCM.PN ---
Subjective - Date & Time of Evaluation Date of Evaluation: 01/24/17 Time of Evaluation: 12:00 - Subjective Subjective: clinically same Objective - Vital Signs/Intake and Output Vital Signs (last 24 hours): Temp Pulse Resp BP Pulse Ox 99.4 F 73 20 110/60 97 01/24/17 15:20 01/24/17 16:00 01/24/17 15:20 01/24/17 15:20 01/24/17 15:20 Intake and Output: 01/24/17 01/25/17 18:59 06:59 Intake Total 650 Balance 650 - Medications Medications: Current Medications Acetaminophen (Tylenol 325mg Tab) 650 mg PO Q6 PRN PRN Reason: Pain, moderate (4-7) Last Admin: 01/23/17 21:22 Dose: 650 mg Enoxaparin Sodium (Lovenox) 60 mg SC Q12 GRACE Last Admin: 01/24/17 10:03 Dose: 60 mg Pneumococcal Polyvalent Vaccine (Pneumovax 23 Vaccine) 0.5 ml IM .ONCE ONE Stop: 01/25/17 10:01 - Labs Labs: 01/23/17 13:29 01/23/17 13:29 PT 14.0 SECONDS (9.7-12.2) H 01/24/17 10:43 INR 1.2 01/24/17 10:43 APTT 35 SECONDS (21-34) H 01/24/17 10:43 - Constitutional Appears: Well - Head Exam Head Exam: ATRAUMATIC, NORMAL INSPECTION, NORMOCEPHALIC - Eye Exam Eye Exam: EOMI, Normal appearance, PERRL Pupil Exam: NORMAL ACCOMODATION, PERRL - ENT Exam ENT Exam: Mucous Membranes Moist, Normal Exam - Neck Exam Neck Exam: Full ROM, Normal Inspection. absent: Lymphadenopathy - Respiratory Exam Respiratory Exam: Decreased Breath Sounds - Cardiovascular Exam Cardiovascular Exam: REGULAR RHYTHM, +S1, +S2 - GI/Abdominal Exam GI & Abdominal Exam: Soft, Diminished Bowel Sounds - Rectal Exam Rectal Exam: Deferred
--- NOTE | 2017-01-24 20:28 | PN ---
DATE: SUBJECTIVE: She denies any dizziness, no reported arrhythmia. PHYSICAL EXAMINATION: VITAL SIGNS: Blood pressure 115/65, heart rate 86, temperature 98.4 and respiration 20. HEENT: Normocephalic. CHEST: Clear. HEART: S1 and S2 regular. EXTREMITIES: No edema. No calf tenderness. LABORATORY DATA: D-dimer was elevated to 165. ASSESSMENT: 1. Syncopal episode. 2. Left thigh pain. 3. Rule out urinary tract infection. RECOMMENDATIONS: Continue therapeutic subcutaneous Lovenox at 60 mg twice a day. Awaiting the CT angio results. Venous doppler of the lower extremity was also requested. Eligio Marin MD
[2017-01-25] MEDS ORDERED: Gadodiamide 287 MG/ML VIAL (15ML) IV ONE (09:52)
--- NOTE | 2017-01-25 09:54 | PN ---
DATE: 01/25/2017 NEUROLOGICAL PROBLEM: New syncopal attack with abnormal blood report, possible hypercoagulopathy. PHYSICAL EXAMINATION: GENERAL: The patient is arousable. Slept good. VITAL SIGNS: Blood pressure 120/77, mean arterial pressure of 91, respiratory rate 18, temperature 97.9. EXTREMITIES: Left hip pain radiating down to her leg. There is no obvious swelling to compare with her right side. No pitting edema. NEUROLOGIC: No headache. Deep tendon reflexes, no asymmetriness noted. Rest of the examination is unchanged. LABORATORY DATA: The patient's workup showed PT 14.0, PTT 35, fibrinogen 35, FDP 616 with D-dimer 765. IMAGING: The patient had a CT angiogram, does not show venous thrombosis. RECOMMENDATIONS: The patient is recommended to have MRI of the brain today and hematology consultation is recommended. The patient is also scheduled to have Doppler studies of the lower extremities today. The patient on heparin subQ at present. No antiplatelet drug is needed. The patient is also scheduled to have today. Chance Galindo MD
[2017-01-25] MEDS ORDERED: Pneumococcal 23-Valent Vaccine IM ONE (10:00)
--- NOTE | 2017-01-25 10:24 | MRI ---
PROCEDURE: MRI BRAIN WITH AND WITHOUT CONTRAST HISTORY: mass ?? COMPARISON: Head CT without contrast dated 01/23/2017. TECHNIQUE: Multiplanar, multisequence MR images of the brain were obtained with and without intravenous contrast enhancement. FINDINGS: HEMORRHAGE: None DWI: No evidence of an acute or early subacute infarction. BRAIN PARENCHYMA: Intrinsic signal throughout the chamberlain and white matter structures above below the tentorium includes appears within normal limits including the brainstem. There is no mass effect, parenchymal edema or loss of the corticomedullary differentiation. Midline brain anatomy appears within normal limits including the corpus callosum, brainstem and craniocervical junction. There is no suspicious extra-axial fluid collection identified. There is no intracranial enhancing mass appreciated. Normal enhancement is appreciated throughout. ENHANCEMENT: No abnormal intracranial enhancement. VENTRICLES: Unremarkable. No hydrocephalus. CRANIUM: Unremarkable. ORBITS: Grossly unremarkable. PARANASAL SINUSES/MASTOIDS: Clear VASCULAR SYSTEM: Skull base flow voids intact. OTHER FINDINGS: None . IMPRESSION: Unremarkable pre and post contrast enhanced MRI of the brain.
[2017-01-25] MEDS: Enoxaparin 60 mg Syringe SC SCH (11:27)
--- NOTE | 2017-01-25 12:42 | CARD ---
APPROVED REPORT EKG Measurement Heart [id number] <Conclusion> Normal sinus rhythm Prolonged QT Abnormal ECG
--- NOTE | 2017-01-25 15:00 | CP.PCM.PN ---
Subjective - Date & Time of Evaluation Date of Evaluation: 01/25/17 Time of Evaluation: 11:00 - Subjective Subjective: PT SEEN AND EXAMINED TODAY, DENIES ANY CHEST PAIN, SOB, PALPITATION, DIZZINESS, RESP EASY AND UNLABORED. NAD Objective - Vital Signs/Intake and Output Vital Signs (last 24 hours): Temp Pulse Resp BP Pulse Ox 98.2 F 70 20 100/60 98 01/25/17 08:05 01/25/17 11:41 01/25/17 08:05 01/25/17 08:05 01/25/17 08:05 Intake and Output: 01/25/17 01/25/17 06:59 18:59 Intake Total 600 Balance 600 - Medications Medications: Current Medications Acetaminophen (Tylenol 325mg Tab) 650 mg PO Q6 PRN PRN Reason: Pain, moderate (4-7) Last Admin: 01/23/17 21:22 Dose: 650 mg Enoxaparin Sodium (Lovenox) 60 mg SC Q12 GRACE Last Admin: 01/25/17 11:27 Dose: 60 mg - Labs Labs: 01/23/17 13:29 01/23/17 13:29 PT 14.0 SECONDS (9.7-12.2) H 01/24/17 10:43 INR 1.2 01/24/17 10:43 APTT 35 SECONDS (21-34) H 01/24/17 10:43 Assessment and Plan - Assessment and Plan (Free Text) Plan: 31 Y/O FEMALE ADMITTED FOR SYNCOPE AAOX3, NO NEURO DEFICIT, CLEARED SPEECH W/STEADY GAIT CT ANGIO- UNREMARKABLE, MRI BRAIN- NO ACUTE FINDINGS, DOPPER BLE- NO DVT CLEARED BY DR GAONA MOST LIKELY WILL BE D/C IN AM PER DR JON
--- NOTE | 2017-01-25 15:31 | VASCLAB ---
PROCEDURE: Lower Extremity Venous Duplex Exam. HISTORY: Leg swelling PRIORS: None. TECHNIQUE: Bilateral common femoral, femoral, popliteal and posterior tibial, peroneal and great saphenous veins were evaluated. Flow was assessed with color Doppler, compressibility, assessment of phasic flow and augmentation response. Report prepared by AARON Clancy, RVT FINDINGS: RIGHT: 1. Common Femoral Vein: 1.1. Compressibility - Fully compressible: Thrombus - None : Flow - Phasic: Augmentation -Normal: Reflux - None. 2. Femoral Vein: 2.1. Compressibility - Fully compressible: Thrombus - None : Flow - Phasic: Augmentation -Normal: Reflux - None. 3. Popliteal Vein: 3.1. Compressibility - Fully compressible: Thrombus - None : Flow - Phasic: Augmentation -Normal: Reflux - None. 4. Posterior Tibial Vein: 4.1. Compressibility - Fully compressible: Thrombus - None: Flow - Phasic: Augmentation -Normal: Reflux - None. 5. Peroneal Vein: 5.1. Compressibility - Fully compressible: Thrombus - None: Flow - Phasic: Augmentation -Normal: Reflux - None. 6. Great Saphenous Vein: 6.1. Compressibility - Fully compressible: Thrombus - None: Flow - Phasic: Augmentation - Normal: Reflux - None. LEFT: 1. Common Femoral Vein: 1.1. Compressibility - Fully compressible: Thrombus - None: Flow - Phasic: Augmentation -Normal: Reflux - None. 2. Femoral Vein: 2.1. Compressibility - Fully compressible: Thrombus - None: Flow - Phasic: Augmentation -Normal: Reflux - None. 3. Popliteal Vein: 3.1. Compressibility - Fully compressible: Thrombus - None : Flow - Phasic: Augmentation -Normal: Reflux - None. 4. Posterior Tibial Vein: 4.1. Compressibility - Fully compressible: Thrombus - None: Flow - Phasic: Augmentation -Normal: Reflux - None. 5. Peroneal Vein: 5.1. Compressibility - Fully compressible: Thrombus - None: Flow - Phasic: Augmentation -Normal: Reflux - None. 6. Great Saphenous Vein: 6.1. Compressibility - Fully compressible: Thrombus - None: Flow - Phasic: Augmentation - Normal: Reflux - None. OTHER FINDINGS: Right: None significant. Left: None significant. IMPRESSION: Right: No evidence of deep or superficial vein thrombosis of the right lower extremity. Normal valve function noted of the right side. Left: No evidence of deep or superficial vein thrombosis of the left lower extremity. Normal valve function noted of the left side.
[2017-01-25 16:36] VITALS: PULSE 64
[2017-01-25 16:58] VITALS: BP 105/66; TEMP 98.4; O2SAT 95
--- NOTE | 2017-01-25 22:01 | CP.PCM.PN ---
Subjective - Date & Time of Evaluation Date of Evaluation: 01/25/17 Objective - Vital Signs/Intake and Output Vital Signs (last 24 hours): Temp Pulse Resp BP Pulse Ox 98.4 F 64 20 105/66 95 01/25/17 15:25 01/25/17 16:00 01/25/17 15:25 01/25/17 15:25 01/25/17 15:25 Intake and Output: 01/25/17 01/26/17 18:59 06:59 Intake Total 600 Balance 600 - Labs Labs: 01/23/17 13:29 01/23/17 13:29 PT 14.0 SECONDS (9.7-12.2) H 01/24/17 10:43 INR 1.2 01/24/17 10:43 APTT 35 SECONDS (21-34) H 01/24/17 10:43
--- NOTE | 2017-01-25 22:10 | PN ---
SUBJECTIVE: The patient denies any dizziness or palpitation. She is ambulatory. PHYSICAL EXAMINATION: VITAL SIGNS: Blood pressure 100/60, heart rate is 73, temperature 98.2, respirations 20. HEENT: Normocephalic. CHEST: Clear. HEART: S1 and S2 regular. EXTREMITIES: No edema. LABORATORY DATA: *------* panel as well as MUNA profile are negative. Brain MRI unremarkable; pre and post contrast enhanced MRI of the brain. Venous of the lower extremities, preliminary report is negative for DVT. CT angio of the vein was unremarkable. ASSESSMENT: 1. Syncopal episode. 2. Left hip pain. 3. Rule out urinary tract infection. RECOMMENDATIONS: Discontinue subcutaneous Lovenox. No further cardiac workup is indicated at this time. Eligio Marin MD
== END 2017-01-25 18:44 | disposition left against medical advice (07) | DRG 141 ==
LOC: SUPCPDRO 23:07 → C.ER 23:07 → C.9E 01-23 03:33 → C.6T 01-23 04:11
PROVIDERS: ADMIT Internal Medicine Nephrology; ATTEND Internal Medicine Nephrology
DX: R55 Syncope and collapse (principal); N39.0 Urinary tract infection, site not specified; E87.6 Hypokalemia; E86.0 Dehydration; R51 Headache; J45.909 Unspecified asthma, uncomplicated; F17.210 Nicotine dependence, cigarettes, uncomplicated; Z98.51 Tubal ligation status; G47.00 Insomnia, unspecified

== ENCOUNTER 2018-05-26 19:40 | Emergency (ER) | payer MEDICAID ==
[2018-05-26 19:42] VITALS: BMI 26.6
[2018-05-26 20:01] VITALS: BP 122/77; PULSE 85; TEMP 98.2; O2SAT 99
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
[2018-05-26 21:45] VITALS: RESP 20
--- NOTE | 2018-05-27 10:20 | RAD ---
Date of service: 05/26/2018 PROCEDURE: Right Ankle Radiographs. HISTORY: Injury COMPARISON: Comparison made with concurrent radiographs of the right foot FINDINGS: BONES: Normal. No fracture. JOINTS: Normal. No osteoarthritis. Ankle mortise maintained. Talar dome intact SOFT TISSUES: There may be some minimal soft tissue swelling over the lateral malleolus OTHER FINDINGS: None. IMPRESSION: No evidence of acute displaced fracture nor dislocation.
--- NOTE | 2018-05-27 12:22 | RAD ---
Date of service: 05/26/2018 PROCEDURE: Right Foot Radiographs. HISTORY: Injury COMPARISON: Comparison made with concurrent radiographs right ankle FINDINGS: BONES: Normal. No fracture. JOINTS: Normal. SOFT TISSUES: Normal. OTHER FINDINGS: None. IMPRESSION: No evidence of acute displaced fracture nor dislocation.
== END 2018-05-26 21:44 | disposition home or self-care (01) ==
LOC: C.ER 19:40
DX: S93.401A Sprain of unspecified ligament of right ankle, initial encounter (principal); V03.90XA Pedestrian on foot injured in collision with car, pick-up truck or van, unspecified whether traffic or nontraffic accident, initial encounter; M79.7 Fibromyalgia

== ENCOUNTER 2018-06-24 21:41 | Emergency (ER) | payer MEDICAID ==
[2018-06-24 21:41] VITALS: BMI 26.6
[2018-06-24 21:56] VITALS: BP 113/75; PULSE 80; RESP 14; TEMP 98.7; O2SAT 99
--- NOTE | 2018-06-24 22:42 | C.PDOC ---
History Of Present Illness 32 year old female presents to the ED c/o sore throat, bilateral ear pain, bumps in his tongue for the past week. Patient also c/o dry cough. Patient did not take any OTC medications for his symptoms. Patient denies fever, chills, tongue swelling, dental injury, SOB, rash, recent travel, sick contacts. Time Seen by Provider: 06/24/18 22:03 Chief Complaint (Nursing): ENT Problem History Per: Patient History/Exam Limitations: None Onset/Duration Of Symptoms: Days Current Symptoms Are (Timing): Still Present Quality (Ear): Pain W/Touch Quality (Mouth/Throat): Other (Bumps) Anticoagulant/Antiplatlet Use?: No Recent Aspirin Use: No Past Medical History Reviewed: Historical Data, Nursing Documentation, Vital Signs Vital Signs: Last Vital Signs Temp 98.7 F 06/24/18 21:47 Pulse 80 06/24/18 21:47 Resp 14 06/24/18 21:47 BP 113/75 06/24/18 21:47 Pulse Ox 99 06/24/18 21:47 - Medical History PMH: Asthma, Fibromyalgia Denies: Chronic Kidney Disease Surgical History: (with tubal ligation) - [facility] Procedures EXTRACTION OF POC, LOW CERVICAL, OPEN APPROACH (10/14/16) INTRODUCTION OF SERUM/TOX/VACCINE INTO MUSCLE, PERC APPROACH (10/14/16) MONITORING OF POC, CARDIAC RATE, BAILING MACHINE OPERATOR APPROACH (10/14/16) OCCLUSION OF BILATERAL FALLOPIAN TUBES, OPEN APPROACH (10/14/16) TETANUS TOXOID ADMINIST (12/24/14) Family History: States: Unknown Family Hx - Social History Hx Tobacco Use: No (Quit) Hx Alcohol Use: Yes Hx Substance Use: No - Immunization History Hx Tetanus Toxoid Vaccination: No Hx Influenza Vaccination: No Hx Pneumococcal Vaccination: No Review Of Systems Constitutional: Negative for: Fever, Chills ENT: Positive for: Ear Pain, Mouth Swelling, Throat Pain. Negative for: Nose Discharge, Nose Congestion Respiratory: Negative for: Cough, Shortness of Breath Gastrointestinal: Negative for: Nausea, Vomiting Skin: Negative for: Rash Neurological: Negative for: Headache Physical Exam - Physical Exam Appears: Non-toxic, No Acute Distress Skin: Normal Color, Warm, Dry Head: Atraumatic, Normacephalic Eye(s): bilateral: Normal Inspection Ear(s): Bilateral: Normal Nose: No Discharge Oral Mucosa: Moist Tongue: No Lesions, No Laceration, Other (papillae to the tongue) Throat: Normal, No Erythema, No Exudate Neck: Normal ROM, Supple Chest: Symmetrical Cardiovascular: Rhythm Regular Respiratory: Normal Breath Sounds, No Rales, No Rhonchi, No Wheezing Extremity: Normal ROM, No Tenderness, No Swelling Neurological/Psych: Oriented x3, Normal Speech, Normal Cognition Gait: Steady ED Course And Treatment O2 Sat by Pulse Oximetry: 99 (ON RA) Pulse Ox Interpretation: Normal Progress Note: Plan: - Throat culture. - Rapid streph group. Patient's streph test came back negative. Patient wad avised to used anithistamines at home, return to the ED if symptoms worsened and follow up with PMD. Disposition Counseled Patient/Family Regarding: Diagnosis, Need For Followup - Disposition Disposition: HOME/ ROUTINE Disposition Time: 22:41 Condition: STABLE Additional Instructions: PLEASE FOLLOW UP WITH PMD GARGLE WARM SALT WATER TAKE ANTI ALLERGY TABS OTC RETURN TO ER IF WORSE Instructions: Seasonal Allergies (DC) Forms: [facility] (Mongolian) - Clinical Impression Clinical Impression: Allergic rhinitis, Upper respiratory infection - PA / JUNIOR SYSTEMS ANALYST / Resident Statement MD/DO has reviewed & agrees with the documentation as recorded. - Scribe Statement The provider has reviewed the documentation as recorded by the Scribe Gabe Balderrama All medical record entries made by the Scribe were at my direction and personally dictated by me. I have reviewed the chart and agree that the record accurately reflects my personal performance of the history, physical exam, medical decision making, and the department course for this patient. I have also personally directed, reviewed, and agree with the discharge instructions and disposition.
== END 2018-06-24 22:49 | disposition home or self-care (01) ==
LOC: C.ER 21:41
DX: J30.9 Allergic rhinitis, unspecified (principal); J06.9 Acute upper respiratory infection, unspecified

== ENCOUNTER 2018-08-08 18:44 | Emergency (ER) | payer MEDICAID ==
[2018-08-08 18:45] VITALS: BMI 26.6
[2018-08-08 19:02] VITALS: BP 122/72; PULSE 98; RESP 18; TEMP 98.1; O2SAT 100
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
--- NOTE | 2018-08-09 08:10 | RAD ---
Date of service: 08/08/2018 PROCEDURE: Left Wrist Radiographs. HISTORY: pain/swelling COMPARISON: None. TECHNIQUE: 4 views obtained. FINDINGS: BONES: Normal. No fracture. JOINTS: Normal. No dislocation. SOFT TISSUES: Normal. OTHER FINDINGS: None. IMPRESSION: Normal left wrist radiographs.
--- NOTE | 2018-08-09 10:54 | RAD ---
Date of service: 08/08/2018 PROCEDURE: Right Ankle Radiographs. HISTORY: pain/swelling COMPARISON: 05/26/2018 TECHNIQUE: 3 views obtained. FINDINGS: BONES: Normal. No fracture. JOINTS: Normal. No osteoarthritis. Ankle mortise maintained. Talar dome intact SOFT TISSUES: Normal. OTHER FINDINGS: None. IMPRESSION: Normal right ankle radiographs. No interval pathology noted.
== END 2018-08-08 21:08 | disposition home or self-care (01) ==
LOC: C.ER 18:44
DX: M25.532 Pain in left wrist (principal); M25.571 Pain in right ankle and joints of right foot; M67.40 Ganglion, unspecified site; M06.9 Rheumatoid arthritis, unspecified; M79.7 Fibromyalgia